=== PATIENT | male | born 1945 | race Caucasian/White ===

== ENCOUNTER → 2019-06-26 10:00 | Outpatient (CLI) | payer MEDICARE, SELFPAY ==
[2017-10-09 13:00] VITALS: BMI 22.7
--- NOTE | 2019-06-26 | DI.CT.S_ITS ---
PROCEDURE: CT LUMBAR SPINE WO CON INDICATIONS: Other spondylosis with radiculopathy TECHNIQUE: Noncontrast 3 mm thick sections acquired from the T12 level to the sacrum. Sagittal and coronal reformats were constructed. For radiation dose reduction, the following was used: automated exposure control. COMPARISON: None. FINDINGS: Image quality: Excellent. Bones: Postsurgical changes compatible L5-S1 TLIF. Orthopedic hardware is intact. No lucency is identified at the bone-hardware interface. There is trace L2-L3 at L3-L4 retrolisthesis. No acute vertebral body compression fractures. No suspicious lytic or blastic bony lesions. Central spinal caliber is of normal overall caliber. No pars defects. T12-L1: Disc height is normal. No central stenosis. No neural foraminal narrowing. No neural compression. L1-L2: Disc height is normal. Anterior endplate osteophytosis. Minimal, diffuse disc bulge. No central stenosis. No neural foraminal narrowing. No neural compression. L2-L3: Loss of disc height. Endplate osteophytosis. Endplate sclerosis and subchondral cyst formation. Mild, diffuse disc bulge and mild bilateral facet hypertrophy. Mild narrowing of the central canal. Mild bilateral neural foraminal narrowing. No neural compression. L3-L4: Loss of disc height. Endplate osteophytosis. Endplate sclerosis and subchondral cyst formation. Mild to moderate diffuse disc bulge. Mild bilateral facet hypertrophy. Mild to moderate narrowing of the central canal. Moderate right and mild left neural foraminal narrowing. No neural compression. L4-L5: Loss of disc height. Vacuum disc phenomenon. Endplate osteophytosis. Endplate sclerosis and subchondral cyst formation. Mild, diffuse disc bulge. Mild facet hypertrophy. Mild to moderate narrowing of the central canal. Moderate to severe bilateral neural foraminal narrowing. No neural compression. L5-S1: Status post fusion. Mild right facet hypertrophy. No central stenosis. Severe bilateral neural foraminal narrowing with slight compression of the exiting L5 nerve roots. Soft tissues: No retroperitoneal masses or hematomas. Visualized aorta is normal in caliber. IMPRESSION: 1. Status post L5-S1 TLIF. 2. Multilevel degenerative disc disease. 3. Multilevel facet arthropathy. 4. Mild to moderate L3-L4 and L4-L5 central canal narrowing. Mild L2-L3 central canal narrowing. 5. Severe bilateral L5-S1 neural foraminal narrowing. Moderate to severe bilateral L4-L5 neural foraminal narrowing. Moderate right and mild left L3-L4 neural foraminal narrowing. Mild bilateral L2-L3 neural foraminal narrowing. 6. Slight compression of the exiting bilateral L5 nerve roots secondary to neural foraminal narrowing. Dictated by: Lynn Arboleda MD, PhD on 06/26/2019 at 13:46 Approved by: Lynn Arboleda MD, PhD on 06/26/2019 at 13:54
== END ==
PROVIDERS: PCP Internal Medicine; Visit Provider Orthopaedic Surgery
DX: M47.26 Other spondylosis with radiculopathy, lumbar region (principal); M51.16 Intervertebral disc disorders with radiculopathy, lumbar region; M48.061 Spinal stenosis, lumbar region without neurogenic claudication; M48.07 Spinal stenosis, lumbosacral region; Z98.1 Arthrodesis status
CPT/HCPCS: 72131

== ENCOUNTER → 2019-08-08 13:55 | Outpatient (CLI) | payer MEDICARE, SELFPAY ==
[2017-10-09 13:00] VITALS: BMI 22.7
[2019-08-08 14:50] LABS: Alanine Aminotransferase 14 IU/L (<50); Albumin 4.2 g/dL (3.5-5.0); Albumin Globulin Ratio 1.7 (1.0-2.8); Alkaline Phosphatase 40 U/L (38-126); Aspartate Aminotransferase 24 IU/L (17-59); Bilirubin Total 0.4 mg/dL (0.2-1.3); Blood Urea Nitrogen 18 mg/dL (9-20); Calcium 9.5 mg/dL (8.4-10.2); Carbon Dioxide 27 mmol/L (22-32); Chloride 106 mmol/L (98-107); Cholesterol 187 mg/dL (140-199); Estimated Glomerular Filt Rate > 60.0 mL/min (>60); Globulin 2.5 g/dL (1.7-4.1); Glucose 95 mg/dL (80-110); HDL Cholesterol 50 mg/dL (40-60); HEMOLYSIS < 15 (0-50); LDL Cholesterol Calculated 119 mg/dL (<100); Potassium 4.3 mmol/L (3.4-5.1); Sodium 139 mmol/L (137-145); Total Protein 6.7 g/dL (6.3-8.2); Triglycerides 91 mg/dL (35-150)
== END ==
PROVIDERS: PCP Internal Medicine; Referring Provider Internal Medicine; Visit Provider Internal Medicine
DX: E78.5 Hyperlipidemia, unspecified (principal)
CPT/HCPCS: 36415; 80053; 80061

== ENCOUNTER → 2020-01-09 07:26 | Outpatient (CLI) | payer OTHER, SELFPAY ==
[2017-10-09 13:00] VITALS: BMI 22.7
[2020-01-09 08:47] LABS: Alanine Aminotransferase 12 IU/L (<50); Albumin 4.2 g/dL (3.5-5.0); Albumin Globulin Ratio 1.9 (1.0-2.8); Alkaline Phosphatase 43 U/L (38-126); Aspartate Aminotransferase 22 IU/L (17-59); BUN Creatinine Ratio 13.1 (6-22); Bilirubin Total 0.8 mg/dL (0.2-1.3); Blood Urea Nitrogen 13 mg/dL (9-20); Calcium 9.7 mg/dL (8.4-10.2); Carbon Dioxide 31 mmol/L (22-32); Chloride 104 mmol/L (98-107); Cholesterol 201 mg/dL (140-199); Estimated Glomerular Filt Rate > 60.0 mL/min (>60); Globulin 2.2 g/dL (1.7-4.1); Glucose 92 mg/dL (80-110); HDL Cholesterol 58 mg/dL (40-60); HEMOLYSIS < 15 (0-50); LDL Cholesterol Calculated 131 mg/dL (<100); Potassium 4.1 mmol/L (3.4-5.1); Sodium 139 mmol/L (137-145); Total Protein 6.4 g/dL (6.3-8.2); Triglycerides 58 mg/dL (35-150)
[2020-01-10 07:09] LABS: PSA, Total < 0.1 ng/mL (0.0-4.0)
== END ==
PROVIDERS: PCP Internal Medicine; Referring Provider Internal Medicine; Visit Provider Internal Medicine
DX: R03.0 Elevated blood-pressure reading, without diagnosis of hypertension (principal); Z85.46 Personal history of malignant neoplasm of prostate; E78.5 Hyperlipidemia, unspecified
CPT/HCPCS: 36415; 80053; 80061; 84153; 84154

== ENCOUNTER → 2020-02-18 10:45 | Outpatient (CLI) | payer MEDICARE, SELFPAY ==
[2017-10-09 13:00] VITALS: BMI 22.7
[2020-02-20 12:08] LABS: Fecal Immunochemical Test Negative (Negative)
== END ==
PROVIDERS: PCP Family Medicine; Referring Provider Family Medicine; Visit Provider Family Medicine
DX: Z12.11 Encounter for screening for malignant neoplasm of colon (principal)
CPT/HCPCS: 82274

== ENCOUNTER → 2020-08-25 07:19 | Outpatient (CLI) | payer MEDICARE, SELFPAY ==
[2017-10-09 13:00] VITALS: BMI 22.7
[2020-08-25 08:40] LABS: Cholesterol 173 mg/dL (140-199); Triglycerides 55 mg/dL (35-150)
[2020-08-25 08:55] LABS: HDL Cholesterol 50 mg/dL (40-60); LDL Cholesterol Calculated 112 mg/dL (<100)
== END ==
PROVIDERS: PCP Family Medicine; Referring Provider Family Medicine; Visit Provider Family Medicine
DX: E78.5 Hyperlipidemia, unspecified (principal)
CPT/HCPCS: 36415; 80061

== ENCOUNTER → 2020-09-28 13:41 | Outpatient (CLI) | payer MEDICARE, SELFPAY ==
[2017-10-09 13:00] VITALS: BMI 22.7
[2020-09-28 14:27] LABS: Hemoglobin A1C% w Est Avg Glu 4.6 % (4.0-6.0)
[2020-09-28 17:45] LABS: TSH w/ Reflex to FT4 3.58 uIU/mL (0.47-4.68)
== END ==
PROVIDERS: PCP Family Medicine; Referring Provider Family Medicine; Visit Provider Family Medicine
DX: R20.9 Unspecified disturbances of skin sensation
CPT/HCPCS: 36415; 80061; 83036; 84443

== ENCOUNTER → 2020-12-08 07:02 | Outpatient (CLI) | payer MEDICARE, SELFPAY ==
[2017-10-09 13:00] VITALS: BMI 22.7
[2020-12-08 08:49] LABS: Cholesterol 182 mg/dL (140-199); HDL Cholesterol 51 mg/dL (40-60); LDL Cholesterol Calculated 121 mg/dL (<100); Triglycerides 52 mg/dL (35-150)
== END ==
PROVIDERS: PCP Family Medicine; Referring Provider Family Medicine; Visit Provider Family Medicine
DX: E78.5 Hyperlipidemia, unspecified (principal)
CPT/HCPCS: 36415; 80061

== ENCOUNTER → 2021-12-14 07:08 | Outpatient (CLI) | payer MEDICARE, SELFPAY ==
[2017-10-09 13:00] VITALS: BMI 22.7
[2021-12-14 08:06] LABS: Alanine Aminotransferase 16 IU/L (<50); Albumin 3.9 g/dL (3.5-5.0); Albumin Globulin Ratio 1.7 (1.0-2.8); Alkaline Phosphatase 46 U/L (38-126); Aspartate Aminotransferase 22 IU/L (17-59); BUN Creatinine Ratio 13.5 (6-22); Bilirubin Total 0.5 mg/dL (0.2-1.3); Blood Urea Nitrogen 14 mg/dL (9-20); Calcium 8.9 mg/dL (8.4-10.2); Carbon Dioxide 31 mmol/L (22-32); Chloride 102 mmol/L (98-107); Cholesterol 163 mg/dL (140-199); Estimated Glomerular Filt Rate > 60 mL/min (>60); Globulin 2.3 g/dL (1.7-4.1); Glucose 105 mg/dL (80-110); HDL Cholesterol 45 mg/dL (40-60); HEMOLYSIS < 15 (0-50); LDL Cholesterol Calculated 107 mg/dL (<100); Potassium 4.2 mmol/L (3.4-5.1); Sodium 138 mmol/L (137-145); Total Protein 6.2 g/dL (6.3-8.2); Triglycerides 53 mg/dL (35-150)
[2021-12-14 08:35] LABS: Thyroid Stimulating Hormone 4.18 uIU/mL (0.47-4.68)
== END ==
PROVIDERS: PCP Family Medicine; Referring Provider Family Medicine; Visit Provider Family Medicine
DX: E78.5 Hyperlipidemia, unspecified (principal); R03.0 Elevated blood-pressure reading, without diagnosis of hypertension
CPT/HCPCS: 36415; 80053; 80061; 84443

== ENCOUNTER → 2021-12-20 10:31 | Outpatient (CLI) | payer MEDICARE, SELFPAY ==
[2017-10-09 13:00] VITALS: BMI 22.7
[2021-12-20 12:07] LABS: Add Manual Diff / Slide Review NO; Basophils Absolute Auto 0 /uL (0-100); Basophils Percent Auto 0.6 % (0-2); Eosinophils Absolute Auto 0 /uL (0-450); Eosinophils Percent Auto 0.9 % (2-4); Hematocrit 41.9 % (41-53); Hemoglobin 14.8 g/dL (13.5-17.5); Lymphocytes Absolute Auto 800 /uL (1100-4500); Lymphocytes Percent Auto 15.9 % (25-40); Mean Corpuscular HGB Conc 35.2 % (30-36); Mean Corpuscular Hemoglobin 29.1 PG (26-34); Mean Corpuscular Volume 82.6 fL (80-100); Monocytes Absolute Auto 400 /uL (0-900); Monocytes Percent Auto 7.2 % (3-14); Neutrophils Absolute Auto 4000 /uL (1500-7000); Neutrophils Percent Auto 75.4 % (50-75); Platelet Count 178 X10^3/uL (150-400); Red Blood Cell Count 5.07 X10^6/uL (4.5-5.9); Red Cell Distribution Width 13.6 % (11.6-14.8); White Blood Cell Count 5.3 X10^3/uL (4.5-11.0)
[2021-12-20 12:54] LABS: HEMOLYSIS < 15 (0-50); Iron 82 ug/dL (49-181)
[2021-12-20 13:08] LABS: Percent Iron Saturation 30 % (20-50); Total Iron Binding Capacity 274 ug/dL (261-462); Transferrin 212 mg/dL (206-381)
[2021-12-20 13:21] LABS: Prostate Specific Antigen < 0.064 ng/mL (0.10-4.00)
== END ==
PROVIDERS: PCP Family Medicine; Referring Provider Physician Assistant; Visit Provider Physician Assistant
DX: D64.9 Anemia, unspecified (principal); Z85.46 Personal history of malignant neoplasm of prostate
CPT/HCPCS: 36415; 83540; 83550; 84153; 85025

== ENCOUNTER 2022-07-27 13:22 | Inpatient (IN) | payer MEDICARE, SELFPAY ==
[2017-10-09 13:00] VITALS: BMI 22.7
[2022-07-27] VITALS (44 sets, daily range): BP systolic 119–177; BP diastolic 72–128; PULSE 139–146; RESP 11–24; TEMP 36.2–37.3; O2SAT 95–99; BMI 25.7; BMI 26.2
--- NOTE | 2022-07-27 13:48 | DI.RAD.S_ITS ---
PROCEDURE: XR CHEST 1V INDICATIONS: chest pain TECHNIQUE: One view of the chest was acquired. COMPARISON: None. FINDINGS: Surgical changes and devices: None. Lungs and pleura: Lungs are clear. No pleural effusions or pneumothorax. Mediastinum: Mediastinal contours appear normal. Heart size is normal. Bones and chest wall: No suspicious bony lesions. Overlying soft tissues appear unremarkable. IMPRESSION: No acute cardiopulmonary disease. Dictated by: Kimani Rivas M.D. on 07/27/2022 at 15:02 Approved by: Kimani Rivas M.D. on 07/27/2022 at 15:02
[2022-07-27 14:02] LABS: Add Manual Diff / Slide Review NO; Basophils Absolute Auto 100 /uL (0-100); Basophils Percent Auto 0.8 % (0-2); Eosinophils Absolute Auto 100 /uL (0-450); Eosinophils Percent Auto 1.2 % (2-4); Hematocrit 47.3 % (41-53); Hemoglobin 15.4 g/dL (13.5-17.5); Lymphocytes Absolute Auto 900 /uL (1100-4500); Lymphocytes Percent Auto 14.1 % (25-40); Mean Corpuscular HGB Conc 32.6 % (30-36); Mean Corpuscular Hemoglobin 27.2 PG (26-34); Mean Corpuscular Volume 83.3 fL (80-100); Monocytes Absolute Auto 400 /uL (0-900); Monocytes Percent Auto 6.4 % (3-14); Neutrophils Absolute Auto 5100 /uL (1500-7000); Neutrophils Percent Auto 77.5 % (50-75); Platelet Count 164 X10^3/uL (150-400); Red Blood Cell Count 5.68 X10^6/uL (4.5-5.9); Red Cell Distribution Width 14.4 % (11.6-14.8); White Blood Cell Count 6.5 X10^3/uL (4.5-11.0)
[2022-07-27 14:09] LABS: INR 1.3 (0.9-1.3); Prothrombin Time 14.8 SECONDS (10.1-12.7)
[2022-07-27 14:10] LABS: D Dimer 342 ng/ml (<500)
[2022-07-27 14:13] LABS: Alanine Aminotransferase 34 IU/L (<50); Albumin 4.2 g/dL (3.5-5.0); Albumin Globulin Ratio 1.7 (1.0-2.8); Alkaline Phosphatase 53 U/L (38-126); Aspartate Aminotransferase 29 IU/L (17-59); BUN Creatinine Ratio 16.3 (6-22); Bilirubin Total 0.7 mg/dL (0.2-1.3); Blood Urea Nitrogen 16 mg/dL (9-20); Carbon Dioxide 27 mmol/L (22-32); Chloride 103 mmol/L (98-107); Creatine Kinase 66 U/L (55-170); Estimated Glomerular Filt Rate > 60 mL/min (>60); Globulin 2.5 g/dL (1.7-4.1); Glucose 108 mg/dL (80-110); HEMOLYSIS < 15 (0-50); Lipase 143 U/L (23-300); Potassium 3.9 mmol/L (3.4-5.1); Sodium 137 mmol/L (137-145); Total Protein 6.7 g/dL (6.3-8.2)
[2022-07-27] MEDS: DILTIAZEM 125 MG/125 ML PIGGYBACK IV (14:23)
[2022-07-27] MEDS: dilTIAZem 5 MG/ML SDV 10 MG IV (14:23)
[2022-07-27 14:24] LABS: NT-proBNP (BNP-Adult 18+) 448 pg/mL (<450); Troponin I < 0.012 ng/mL (0.01-0.034)
[2022-07-27] MEDS: SODIUM CHLORIDE 0.9% 1,000 ML 150 ML IV (14:24)
--- NOTE | 2022-07-27 15:26 | ED_ITS ---
HPI - Arrhythmia/Palpitations General Chief Complaint: Arrhythmia/Palpitations Stated Complaint: sent by DR payne heart rate & BP Time Seen by Provider: 07/27/22 13:48 Source: patient Mode of arrival: Ambulatory History of Present Illness HPI narrative: 77-year-old male former smoker with history of hyperlipidemia presents with a chief complaint of shortness of breath and fatigue and a rapid heart rate, likely for the past few days but it certainly intensified last night. He gets significantly short of breath with exertion and feels dizzy and lightheaded. He denies any history of AFib or a flutter. Patient denies any change in med ications or diet. He denies any fever or chills. He denies nausea, vomiting or diarrhea Related Data Home Medications Medication Instructions Recorded Confirmed multivitamin 1 tab PO DAILY 09/18/17 07/27/22 celecoxib 100 mg capsule 100 mg PO BID 07/27/22 07/27/22 Previous Rx's Medication Instructions Recorded pravastatin 10 mg tablet 10 mg PO BEDTIME #90 tabs 12/20/21 Allergies Allergy/AdvReac Type Severity Reaction Status Date / Time No Known Allergies Allergy Unknown Verified 07/27/22 16:20 Review of Systems Review of Systems Narrative: GENERAL: Denies chills, fatigue, malaise, fever, sweats. HEENT: Denies sinus pain, ear pain, sore throat, difficulty swallowing, dizziness. RESPIRATORY: See HPI CARDIOVASCULAR: See HPI GASTROINTESTINAL: Denies nausea, vomiting, abdominal pain, diarrhea, constipation, melena. : Denies dysuria, frequency, incontinence, hematuria, urinary retention. MUSCULOSKELETAL: denies weakness, joint pain, or bony pain SKIN: Denies rash, skin lesions, or other NEUROLOGIC: Denies weakness, headache, numbness, change in speech, confusion, seizures, incoordination. PSYCHIATRIC: No concerning psychosocial issues. 12 point review of systems is negative except for those stated above Patient History Medical History Arthritis Back pain (~2016) Chicken pox COVID-19 DDD (degenerative disc disease) DJD (degenerative joint disease) Elevated LDL cholesterol level Hearing loss History of COVID-19 History of malignant neoplasm of prostate History of prostate cancer Jaw fracture Malignant neoplasm of prostate (12/07/16) Measles Mumps Nocturia Ocular migraine Right knee pain (12/19/16) Weight loss, intentional Surgical History Anesthesia History of prostatectomy (~1995) History of spinal fusion (~2017) History of tonsillectomy Mandibular fracture (~1967) S/P left knee arthroscopy Family History Father History of heart disease Mother No problems noted. Social History household members: spouse Smoking Status: Former smoker second hand exposure: No alcohol intake: current substance use type: does not use Smoking Status: Former smoker alcohol intake frequency: 0-2 drinks per day Substance Use Type: does not use Exam Narrative Exam Narrative: GENERAL: [77] year old patient appears stated age. Well-developed patient, in mild distress. HEAD: Atraumatic. Normocephalic. EYES: Pupils equal round and reactive. Extraocular motions intact. No scleral icterus. No injection or drainage. ENT: Nose without bleeding, purulent drainage. Throat without erythema, tonsillar hypertrophy or exudate. Airway patent. NECK: Trachea midline. Non tender CARDIOVASCULAR: Tachycardic and regular rhythm without murmurs, gallops, or rubs. RESPIRATORY: Clear to auscultation. Breath sounds equal bilaterally. No wheezes, rales, or rhonchi. GASTROINTESTINAL: Abdomen soft, non-tender, nondistended. EXTREMITIES: No edema or joint tenderness. BACK: Nontender without deformity or crepitance. No flank tenderness. NEURO: AOx3. SKIN: No rash or erythema of visible areas Initial Vital Signs Initial Vital Signs: Vital Signs Temperature 97.9 F 07/27/22 13:30 Pulse Rate 144 H 07/27/22 13:30 Respiratory Rate 20 07/27/22 13:30 Blood Pressure 174/118 H 07/27/22 13:30 Pulse Oximetry 99 07/27/22 13:30 Oxygen Delivery Method 07/27/22 13:30 Course Orders Ordered: ED Orders 07/27/22 13:39 EKG-12 Lead Stat 07/27/22 13:48 XR chest 1V Stat 07/27/22 13:49 Complete Blood Count AUTO DIFF Stat Comprehensive Metabolic Panel Stat D Dimer Stat Lipase Stat NT-proBNP (BNP-Adult 18+) Stat Prothrombin Time INR Stat Troponin & CK Cardiac Panel Stat 07/27/22 16:23 COVID19 -Nasal RAPID/Pre-Proc Stat 07/27/22 18:03 Education, smoking cessation ONGOING 07/28/22 07:00 EC echo doppler complete Urgent Acetaminophen (Acetaminophen 325 Mg Tablet) 650 mg PO Q6H PRN PRN Reason: Fever/Mild Pain (1-3) Apixaban (Apixaban 5 Mg Tablet) 5 mg PO BID [facility] Metoprolol Tartrate (Metoprolol Tartrate 5 Mg/5 Ml Inj) 5 mg IV Q2HR PRN PRN Reason: Heart Rate- High (>160) Metoprolol Tartrate (Metoprolol Ir 25 Mg Tablet) 25 mg PO Q6H RAINA Last Admin: 07/27/22 18:34 Dose: 25 mg Documented By: DYAN Naloxone HCl (Naloxone 0.4 Mg/Ml Vial) 0.2 mg IV Q2MIN PRN PRN Reason: Opiate Reversal Pravastatin Sodium (Pravastatin 20 Mg Tablet) 10 mg PO BEDTIME RAINA Discontinued Medications Diltiazem HCl (Diltiazem 5 Mg/Ml Sdv) 10 mg IV NOW ONE Stop: 07/27/22 13:49 Last Admin: 07/27/22 14:23 Dose: 10 mg Documented By: RB DILTIAZEM (Diltiazem 125 Mg/125 Ml-D5w) 125 mg in 125 mls @ 5 mls/hr IV TITRATE RAINA; Protocol Last Titration: 07/27/22 16:09 Dose: 0 mg/hr, 0 mls/hr Documented By: Titration: 07/27/22 15:32 Dose: 15 mg/hr, 15 mls/hr Documented By: Titration: 07/27/22 14:55 Dose: 10 mg/hr, 10 mls/hr Documented By: Admin: 07/27/22 14:23 Dose: 5 mg/hr, 5 mls/hr Documented By: RB Sodium Chloride (Normal Saline 0.9%) 1,000 mls @ 150 mls/hr IV CONT RAINA Last Infusion: 07/27/22 17:40 Dose: 0 mls/hr Documented By: Admin: 07/27/22 14:24 Dose: 150 mls/hr Documented By: RB Metoprolol Tartrate (Metoprolol Ir 25 Mg Tablet) 25 mg PO NOW ONE Stop: 07/27/22 15:53 Last Admin: 07/27/22 16:12 Dose: 25 mg Documented By: KAILA Metoprolol Tartrate (Metoprolol Ir 50 Mg Tablet) 25 mg PO Q6HR RAINA Last Admin: 07/27/22 18:31 Dose: Not Given Documented By: DYAN Reevaluation(s) Reevaluation #1: essentially no change in rate with diltiazem Consultations Consultation #1: call to cardiology, Dr. Garcias, recommends anticoagulation, stopping diltiazem as it is done little to rate control and switching to metoprolol 25 mg p.o. q.6 hours increasing by 25 mg every 12 hours until heart rate below 100. Will need referral to see Dr. Gomez as an outpatient Vital Signs Vital signs: Vital Signs - 8 hr 07/27/22 13:30 07/27/22 14:23 07/27/22 14:18 Temperature 97.9 F Pulse Rate 144 H 145 H 145 H Respiratory Rate 20 Blood Pressure 174/118 H 177/128 H Pulse Oximetry 99 Oxygen Delivery Method Room Air 07/27/22 14:20 07/27/22 14:20 07/27/22 14:24 Temperature Pulse Rate 145 H 145 H Respiratory Rate Blood Pressure 177/128 H Pulse Oximetry 97 97 Oxygen Delivery Method 07/27/22 14:24 07/27/22 14:30 07/27/22 14:30 Temperature Pulse Rate 145 H Respiratory Rate Blood Pressure 167/125 H 156/114 H Pulse Oximetry 96 Oxygen Delivery Method 07/27/22 14:40 07/27/22 14:40 07/27/22 14:50 Temperature Pulse Rate 144 H Respiratory Rate Blood Pressure 154/106 H 145/101 H Pulse Oximetry 96 Oxygen Delivery Method 07/27/22 14:50 07/27/22 15:00 07/27/22 15:00 Temperature Pulse Rate 144 H 144 H Respiratory Rate 22 Blood Pressure 153/108 H Pulse Oximetry 96 97 Oxygen Delivery Method 07/27/22 15:10 07/27/22 15:10 07/27/22 15:20 Temperature Pulse Rate 144 H Respiratory Rate 15 Blood Pressure 152/111 H 152/113 H Pulse Oximetry 95 Oxygen Delivery Method 07/27/22 15:20 07/27/22 15:31 07/27/22 15:33 Temperature Pulse Rate 144 H 142 H 143 H Respiratory Rate 11 L 17 Blood Pressure Pulse Oximetry 96 98 Oxygen Delivery Method 07/27/22 15:33 07/27/22 15:40 07/27/22 15:40 Temperature Pulse Rate 144 H Respiratory Rate Blood Pressure 148/110 H 145/107 H Pulse Oximetry 98 Oxygen Delivery Method 07/27/22 15:45 07/27/22 15:50 07/27/22 15:50 Temperature Pulse Rate 144 H 144 H Respiratory Rate Blood Pressure 140/102 H Pulse Oximetry 97 96 Oxygen Delivery Method 07/27/22 15:55 07/27/22 16:00 07/27/22 16:00 Temperature Pulse Rate 144 H 144 H Respiratory Rate 13 Blood Pressure 143/104 H Pulse Oximetry 97 96 Oxygen Delivery Method 07/27/22 16:05 07/27/22 16:10 07/27/22 16:10 Temperature Pulse Rate 144 H 144 H Respiratory Rate 14 20 Blood Pressure 142/102 H Pulse Oximetry 95 96 Oxygen Delivery Method 07/27/22 16:15 Temperature Pulse Rate 143 H Respiratory Rate 24 Blood Pressure Pulse Oximetry 97 Oxygen Delivery Method MDM - Arrhythmia/Palpitations Lab Data 07/27/22 13:49 07/27/22 13:49 Labs: Lab Results 07/27/22 07/27/22 07/27/22 Range/Units 13:49 13:49 13:49 WBC 6.5 (4.5-11.0) X10^3/uL RBC 5.68 (4.5-5.9) X10^6/uL Hgb 15.4 (13.5-17.5) g/dL Hct 47.3 (41-53) % MCV 83.3 (80-100) fL MCH 27.2 (26-34) PG MCHC 32.6 (30-36) % RDW 14.4 (11.6-14.8) % Plt Count 164 (150-400) X10^3/uL Neut % (Auto) 77.5 H (50-75) % Lymph % (Auto) 14.1 L (25-40) % [place] % (Auto) 6.4 (3-14) % Eos % (Auto) 1.2 L (2-4) % Baso % (Auto) 0.8 (0-2) % Neut # (Auto) 5100 (2559-2259) /uL Lymph # (Auto) 900 L (1730-3663) /uL [place] # (Auto) 400 (0-900) /uL Eos # (Auto) 100 (0-450) /uL Baso # (Auto) 100 (0-100) /uL PT 14.8 H (10.1-12.7) SECONDS INR 1.3 (0.9-1.3) D-Dimer 342 (<500) ng/ml Sodium 137 (137-145) mmol/L Potassium 3.9 (3.4-5.1) mmol/L Chloride 103 (98-107) mmol/L Carbon Dioxide 27 (22-32) mmol/L BUN 16 (9-20) mg/dL Creatinine 0.98 (0.66-1.25) mg/dL Estimated GFR > 60 (>60) mL/min BUN/Creatinine Ratio 16.3 (6-22) Glucose 108 (80-110) mg/dL Calcium 9.0 (8.4-10.2) mg/dL Total Bilirubin 0.7 (0.2-1.3) mg/dL AST 29 (17-59) IU/L ALT 34 (<50) IU/L Alkaline Phosphatase 53 (38-126) U/L Total Creatine Kinase 66 (55-170) U/L CK-MB (CK-2) TNP CK-MB (CK-2) Rel Index TNP Troponin I < 0.012 (0.01-0.034) ng/mL NT-Pro-B Natriuret Pep 448 (<450) pg/mL Total Protein 6.7 (6.3-8.2) g/dL Albumin 4.2 (3.5-5.0) g/dL Globulin 2.5 (1.7-4.1) g/dL Albumin/Globulin Ratio 1.7 (1.0-2.8) Lipase 143 (23-300) U/L Imaging Data Chest x-ray: Radiologist's Impresson: [address] [address] XRay Report Signed Patient: Humberto Pa MR#: [id number] : 1945 Acct:[id number] Age/Sex: 77 / M Date of Service: 07/27/22 Loc: ED Accession Number: [id number] ?? Procedure: XR chest 1V Ordering Provider: Rodríguez Taylor D.O. PROCEDURE:? XR CHEST 1V ? INDICATIONS:? chest pain ? TECHNIQUE:? One view of the chest was acquired.? ? COMPARISON:? None. ? FINDINGS:? ? Surgical changes and devices:? None.? ? Lungs and pleura:? Lungs are clear.? No pleural effusions or pneumothorax.? ? Mediastinum:? Mediastinal contours appear normal.? Heart size is normal.? ? Bones and chest wall:? No suspicious bony lesions.? Overlying soft tissues appear unremarkable.? ? IMPRESSION:? No acute cardiopulmonary disease. ? ? ? Dictated by: Kimani Rivas M.D. on 07/27/2022 at 15:02 ? ? Approved by: Kimani Rivas M.D. on 07/27/2022 at 15:02 ? MDM Narrative Medical decision making narrative: [77-year-old male with history of hyperlipidemia presents with rapid heart rate for the past few days] Multiple etiologies for patient's symptoms considered including, but not limited to: [AFib, atrial flutter versus other] Prior Charts reviewed: Multiple prior notes reviewed Labs reviewed and interpreted by myself: No specific abnormality that would require any intervention Imaging reviewed: Chest x-ray clear Patient with newly discovered atrial flutter, likely present for least the past few days, he is symptomatic but not in significant distress and is not a candidate for cardioversion. Patient is anticoagulated and attempts initially at rate control with diltiazem and then convert to metoprolol. Conversation with Cardiology recommends hospitalization, stabilization with rate control and anticoagulation Discharge Plan Departure Patient Disposition: Admitted as Observation Clinical Impression: Atrial flutter Admit Date/Time: 07/27/22 16:19 Admit Provider: Damian Brennan
[2022-07-27] MEDS: METOPROLOL IR 25 MG TABLET PO ×3 (16:12→21:02)
--- NOTE | 2022-07-27 16:12 | PC.NURSE ---
Dr. Taylor gave this RN a verbal order to stop the diltiazem infusion.
--- NOTE | 2022-07-27 16:21 | P.HP_ITS ---
History of Present Illness History of Present Illness Date Patient Seen: 07/27/22 Time Patient Seen: 16:22 Chief complaint: sent by DR payne heart rate & BP Narrative: 77-year-old male admitted via emergency department because of persistent atrial flutter. Patient had a sense of palpitations difficulty sleeping overnight. Began sometime yesterday he thinks probably. No other associated symptoms including no real shortness of breath maybe a generalized sense of fatigue no chest pain no syncope near-syncope Had an episode about 3 weeks ago when he was sort of rushing to catch a bus in [facility] and he got lightheaded dizzy felt the same sort of palpitations. It passed on its own after 5 or 10 minutes and has not recurred since that time ER evaluation was pretty unremarkable except for the atrial flutter with heart rate about 150 with 2-1 conduction on ECG. No response to IV diltiazem continuously infused. Cardiology suggested oral metoprolol with escalating doses until heart rate is controlled. Cardiology also suggested initiation of anticoagulation with direct oral anticoagulant and outpatient follow-up with Cardiology Patient History Medical History Arthritis Back pain (~2015) Chicken pox COVID-19 DDD (degenerative disc disease) DJD (degenerative joint disease) Elevated LDL cholesterol level Hearing loss History of COVID-19 History of malignant neoplasm of prostate History of prostate cancer Jaw fracture Malignant neoplasm of prostate (12/07/16) Measles Mumps Nocturia Ocular migraine Right knee pain (12/19/16) Weight loss, intentional Surgical History Anesthesia History of prostatectomy (~1995) History of spinal fusion (~2017) History of tonsillectomy Mandibular fracture (~1967) S/P left knee arthroscopy Family & Social History Family History Father History of heart disease Mother No problems noted. Social History: household members spouse Safety & Behavioral: Feels Safe in Current Yes Environment Been Physically Hurt or No Threatened By a Person Tobacco & Substance use: Smoking Status Former smoker alcohol intake current alcohol intake frequency 0-2 drinks per day Substance Use Type does not use Meds Home Medications and Allergies Home Medications Medication Instructions Recorded Confirmed Type multivitamin 1 tab PO DAILY 09/18/17 07/27/22 History pravastatin 10 mg tablet 10 mg PO BEDTIME #90 tabs 12/20/21 07/27/22 Rx celecoxib 100 mg capsule 100 mg PO BID 07/27/22 07/27/22 History Allergies Allergy/AdvReac Type Severity Reaction Status Date / Time No Known Allergies Allergy Unknown Verified 07/27/22 16:20 Review of Systems Review of Systems ROS: Yes All systems reviewed with the patient and are negative except as otherwise documented Exam Vital Signs (past 8 hours): - 07/27/22 13:30 07/27/22 14:23 07/27/22 14:18 Temperature 97.9 F Pulse Rate 144 H 145 H 145 H Respiratory Rate 20 Blood Pressure 174/118 H 177/128 H Pulse Oximetry 99 Oxygen Delivery Method Room Air 07/27/22 14:20 07/27/22 14:20 07/27/22 14:24 Temperature Pulse Rate 145 H 145 H Respiratory Rate Blood Pressure 177/128 H Pulse Oximetry 97 97 Oxygen Delivery Method 07/27/22 14:24 07/27/22 14:30 07/27/22 14:30 Temperature Pulse Rate 145 H Respiratory Rate Blood Pressure 167/125 H 156/114 H Pulse Oximetry 96 Oxygen Delivery Method 07/27/22 14:40 07/27/22 14:40 07/27/22 14:50 Temperature Pulse Rate 144 H Respiratory Rate Blood Pressure 154/106 H 145/101 H Pulse Oximetry 96 Oxygen Delivery Method 07/27/22 14:50 07/27/22 15:00 07/27/22 15:00 Temperature Pulse Rate 144 H 144 H Respiratory Rate 22 Blood Pressure 153/108 H Pulse Oximetry 96 97 Oxygen Delivery Method 07/27/22 15:10 07/27/22 15:10 07/27/22 15:20 Temperature Pulse Rate 144 H Respiratory Rate 15 Blood Pressure 152/111 H 152/113 H Pulse Oximetry 95 Oxygen Delivery Method 07/27/22 15:20 07/27/22 15:31 07/27/22 15:33 Temperature Pulse Rate 144 H 142 H 143 H Respiratory Rate 11 L 17 Blood Pressure Pulse Oximetry 96 98 Oxygen Delivery Method 07/27/22 15:33 07/27/22 15:40 07/27/22 15:40 Temperature Pulse Rate 144 H Respiratory Rate Blood Pressure 148/110 H 145/107 H Pulse Oximetry 98 Oxygen Delivery Method 07/27/22 15:45 07/27/22 15:50 07/27/22 15:50 Temperature Pulse Rate 144 H 144 H Respiratory Rate Blood Pressure 140/102 H Pulse Oximetry 97 96 Oxygen Delivery Method Oxygen Delivery Method Room Air Narrative Exam Narrative: Elderly male in no obvious distress lying on a [facility] HEENT unremarkable Lungs-clear with good breath sounds Heart-tachycardic but regular, no murmur Abdomen-benign Extremities-no cyanosis clubbing or edema Neuro-alert orient x3 moves all 4 extremities no focal findings gait not tested Objective ECG Impression: Atrial flutter with 2-1 conduction and right bundle branch block. No prior ECG for comparison Labs 07/27/22 13:49 07/27/22 13:49 Labs: Laboratory Results - last 24 hr 07/27/22 07/27/22 07/27/22 13:49 13:49 13:49 WBC 6.5 RBC 5.68 Hgb 15.4 Hct 47.3 MCV 83.3 MCH 27.2 MCHC 32.6 RDW 14.4 Plt Count 164 Neut % (Auto) 77.5 H Lymph % (Auto) 14.1 L [place] % (Auto) 6.4 Eos % (Auto) 1.2 L Baso % (Auto) 0.8 Neut # (Auto) 5100 Lymph # (Auto) 900 L [place] # (Auto) 400 Eos # (Auto) 100 Baso # (Auto) 100 PT 14.8 H INR 1.3 D-Dimer 342 Sodium 137 Potassium 3.9 Chloride 103 Carbon Dioxide 27 BUN 16 Creatinine 0.98 Estimated GFR > 60 BUN/Creatinine Ratio 16.3 Glucose 108 Calcium 9.0 Total Bilirubin 0.7 AST 29 ALT 34 Alkaline Phosphatase 53 Total Creatine Kinase 66 CK-MB (CK-2) TNP CK-MB (CK-2) Rel Index TNP Troponin I < 0.012 NT-Pro-B Natriuret Pep 448 Total Protein 6.7 Albumin 4.2 Globulin 2.5 Albumin/Globulin Ratio 1.7 Lipase 143 Assessment & Plan Assessment & Plan narrative: 1. Atrial flutter with rapid ventricular response-will try and control with beta-conner therapy as per Cardiology. Since this is new onset I recommend obtaining echocardiography at some point he will likely need cardiac stress testing but that would best be performed when heart rate is either well controlled or he is back in sinus rhythm. Not felt by Cardiology be a candidate for cardioversion does not appear to have urgent need for cardioversion at this point based on cardiovascular collapse etcetera Cardiology also recommended anticoagulation with a direct oral anticoagulant which makes sense we will initiate that as well. I would start with metoprolol tartrate 25 mg q.6 hours as recommended by Cardiology advanced that as necessary every 12-24 hours. Will also keep metoprolol IV as a backup for severely elevated heart rates and or additional symptoms 2. Hyperlipidemia-continue patient's long-term statin therapy 3. VTE prophylaxis-patient is going to be anticoagulated with Eliquis so no additional anticoagulation or prophylaxis necessary 4. Code status-patient appropriate for, and requests full code in the event of a sudden cardiac or respiratory arrest which not at this point anticipated COVID-19 COVID-19 status: Negative Result date/Date tested (Pos, Neg/Pending): 07/27/22
[2022-07-27 17:00] LABS: COVID19 -Nasal RAPID Negative (Negative)
[2022-07-27] MEDS: PRAVASTATIN 20 MG TABLET 10 MG PO (20:43)
[2022-07-27] MEDS: APIXABAN 5 MG TABLET PO (20:44)
[2022-07-27] MEDS: METOPROLOL TARTRATE 5 MG/5 ML INJ IV (20:56)
--- NOTE | 2022-07-27 21:18 | PC.NURSE ---
Addendum entered by Lakesha Flores R.N. 07/28/22 05:42: [employer] Pt notified RN that he felt a very brief moment of nausea for approximately 2 seconds, then felt like he was short of breath for 5-10 seconds. Pt is on room air and continues SPO2% monitoring stating in the high 90's (96-99), lungs are clear bi-laterally throughout. Pt heart rate has been sustaining in the mid 130's. Manual Blood pressure taken 138/82 (left arm) 124/84 (right arm). Pt denies any chest pain. raised Pt's head of bed to 40*. Pt call light placed within reach (on lap) and instructed to notify RN if any symptoms are felt. SOB,Nausea,Vomit,Lightheadedness or any sensation of anxiety. Pt verbalized understanding. Addendum entered by Lakesha Flores R.N. 07/27/22 22:59: Manual BP 126/72 (left arm) HR 140. Pt denies any chest pain,SOB,Nausea or vomiting. Addendum entered by Lakesha Flores R.N. 07/27/22 22:24: NightShift Dr Jose. called RN for update on Pt, Pt currently sleeping with a heart rate sustained in 140's. Dr Brennan gave new verbal orders of Digoxin 250 mcg give now One time. Order repeated and acknowledged. Original Note: [employer] Pt has had a sustained heart rate above 140's and increased to 170/180's when Pt gets up to use restroom, Pt manual B/P 158/108 (left arm) 142/98 (right arm). Pt denies any SOB, Nausea/Vomit or chest pain. Dr Jose contacted and informed, orders given to give Metoprolol IV 5mg now as per
[2022-07-27] MEDS: DIGOXIN 500 MCG/2 ML AMPUL 250 MCG IV (22:13)
[2022-07-27] MEDS: METOPROLOL IR 25 MG TABLET 50 MG PO (23:48)
[2022-07-28] VITALS (37 sets, daily range): BP systolic 105–153; BP diastolic 68–102; PULSE 70–141; RESP 17–41; TEMP 35.9–37.7; O2SAT 90–141
[2022-07-28] MEDS: METOPROLOL IR 25 MG TABLET 50 MG PO (05:25)
--- NOTE | 2022-07-28 07:00 | DI.ECHO.S_ITS ---
[facility]---------+ [facility] +---------+ : : [address] : [address] : : : : [id number] : : : : Phone: [phone]+ Echocardiogram Report + + :Name: JONNY SNIDER Study Date: 07/28/2022 Height: 72 in : :[facility] ReadingLocation: Weight: 270 lb : : Gender: Male BSA: 2.4 m2 : :: 08/05/1977 Age: 44 yrs BP: 138/85 mmHg: :Reason For Study: Atrial Fibrillation : :Ordering Physician: Bao : :Adilia Day Performed By: Ivette Gan : :Referring: Bao Day : + + Interpretation Summary Left ventricular ejection fraction is estimated to be 35 +/- 5%. There is mild to moderate global hypokinesis of the left ventricle. There is anterior wall severe hypokinesis. There is inferior wall hypokinesis. The right ventricle is mildly dilated. Left ventricular function has mildly worsened compared to the previous exam. There is no significant valvular heart disease. Procedure: A two-dimensional transthoracic echocardiogram with color flow and Doppler was performed. The study quality was technically adequate. The patient was in atrial fibrillation with heart rates between 94-117 bpm during the exam. Left Ventricle: The left ventricle is normal in size and wall thickness. There has been no significant change since the previous study. Left ventricular ejection fraction is estimated to be 35 +/- 5%. Left ventricular function has mildly worsened compared to the previous exam. There is mild to moderate global hypokinesis of the left ventricle. There is anterior wall severe hypokinesis. There is inferior wall hypokinesis. Diastolic function could not be accurately assessed due to atrial fibrillation. Right Ventricle: The right ventricle is mildly dilated. The right ventricular systolic function is normal. Atria: The left atrium is moderately dilated. The right atrium is borderline dilated. There is no Doppler evidence for an interatrial shunt. Mitral Valve: The mitral valve is normal in structure and function. There is no mitral regurgitation noted. Aortic Valve: The aortic valve is normal in structure and function. No aortic regurgitation is present. Tricuspid Valve: The tricuspid valve is normal in structure and function. No tricuspid regurgitation. Pulmonary artery pressures cannot be estimated because of the lack of a measurable TR jet velocity. Pulmonic Valve: The pulmonic valve leaflets are thin and pliable; valve motion is normal. There is no pulmonic valvular regurgitation. Great Vessels: The aortic root is borderline dilated. The ascending aorta is normal in size. MMode/2D Measurements & Calculations LVIDd: 6.4 cm LVOT diam: 2.2 cm LVIDs: 5.1 cm Ao root diam: 3.5 cm FS: 20.6 % asc Aorta Diam: 3.4 cm EPSS: 1.0 cm IVSd: 0.97 cm LVPWd: 0.81 cm LV rushing. diameter/BSA (cm/m^2): 2.7 LV sys. diameter/BSA (cm/m^2): 2.1 LA A2 area: 34.6 cm2 RA long axis: 5.8 cm LA A4 area: 28.6 cm2 RA area: 22.8 cm2 LA length (vol): 6.5 cm RA vol: 76.2 ml LA vol: 129.9 ml RA : 31.5 ml/m2 LA vol index: 53.7 ml/m2 IVC diam: 2.3 cm RVD1 (basal): 4.9 cm TAPSE: 2.0 cm Doppler Measurements & Calculations Ao V2 max: 120.1 cm/sec LVOT Max Sukhdeep: 73.8 cm/sec Ao V2 mean: 92.0 cm/sec LV V1 max P.2 mmHg Ao max P.8 mmHg LV V1 VTI: 10.9 cm Ao mean P.6 mmHg JANET(I,D): 1.9 cm2 Ao V2 VTI: 21.6 cm JANET(V,D): 2.3 cm2 sev ratio: 0.50 JANET indexed to BSA (cm^2/m^2): 0.77 MV E max sukhdeep: 92.9 cm/sec PA V2 max: 80.9 cm/sec MV A max sukhdeep: 53.9 cm/sec PA V2 mean: 62.3 cm/sec MV E/A: 1.7 PA mean P.7 mmHg Med Peak E' Sukhdeep: 9.0 cm/sec E/E' med: 10.3 MV dec time: 0.22 sec MVA(VTI): 2.8 cm2 MV V2 mean: 57.3 cm/sec SV(LVOT): 40.3 ml MV mean P.7 mmHg MV V2 VTI: 14.4 cm Reading Physician:09:09 AM
[2022-07-28] MEDS: APIXABAN 5 MG TABLET PO ×2 (09:07→20:50)
[2022-07-28] MEDS: METOPROLOL IR 25 MG TABLET PO (09:38)
[2022-07-28 11:05] LABS: BUN Creatinine Ratio 18.2 (6-22); Blood Urea Nitrogen 20 mg/dL (9-20); Calcium 8.9 mg/dL (8.4-10.2); Carbon Dioxide 30 mmol/L (22-32); Chloride 104 mmol/L (98-107); Estimated Glomerular Filt Rate > 60 mL/min (>60); Glucose 83 mg/dL (80-110); HEMOLYSIS < 15 (0-50); Potassium 4.3 mmol/L (3.4-5.1); Sodium 141 mmol/L (137-145)
--- NOTE | 2022-07-28 11:18 | PC.NURSE ---
Day shift: Pt in ICU at approx 1100 bed 231. Nikki the FILTER FILLER was given report by this casualty underwriter at approx 1045. Pt remains on tele and HR [address] Diallo is aware. Pt's Spouse in room and aware of plan for Diltiazem drip. Pt has all personal belongings. Nothing was sent to pharmacy or put in safe on admit yesterday.
[2022-07-28] MEDS: SODIUM CHLORIDE 0.9% 1,000 ML 60 ML IV (11:21)
[2022-07-28] MEDS: DILTIAZEM 125 MG/125 ML PIGGYBACK IV (11:22)
--- NOTE | 2022-07-28 11:29 | P.PN_ITS ---
Subjective Subjective Date Patient Seen: 07/28/22 Interval history: The pt reports overall feeling well this morning, but still states he feels a pounding in his chest. He denies any overt chest pain, however. He denies any SOB or LE edema. Exam Vital Signs (past 8 hours): - 07/28/22 04:35 07/28/22 05:20 07/28/22 07:48 Temperature 96.6 F L Pulse Rate 137 H 138 H Respiratory Rate 17 Blood Pressure 123/88 124/96 H Pulse Oximetry 96 96 98 Oxygen Delivery Method Room Air Oxygen Flow Rate 0 0 07/28/22 09:37 Temperature 97.8 F Pulse Rate 140 H Respiratory Rate 18 Blood Pressure 133/89 Pulse Oximetry 96 Oxygen Delivery Method Oxygen Flow Rate 0 Oxygen Delivery Method Room Air Oxygen Flow Rate 0 Narrative Exam Narrative: Gen: NAD, sitting comfortably in bed, appears well CV: regular rhythm, tachycardic, no murmurs Resp: clear to auscultation bilaterally Abd: soft, nontender, nondistended, normoactive bowel sounds Ext: no edema Objective Labs 07/27/22 13:49 07/28/22 10:22 Labs: Laboratory Results - last 24 hr 07/27/22 07/27/22 07/27/22 13:49 13:49 13:49 WBC 6.5 RBC 5.68 Hgb 15.4 Hct 47.3 MCV 83.3 MCH 27.2 MCHC 32.6 RDW 14.4 Plt Count 164 Neut % (Auto) 77.5 H Lymph % (Auto) 14.1 L [place] % (Auto) 6.4 Eos % (Auto) 1.2 L Baso % (Auto) 0.8 Neut # (Auto) 5100 Lymph # (Auto) 900 L [place] # (Auto) 400 Eos # (Auto) 100 Baso # (Auto) 100 PT 14.8 H INR 1.3 D-Dimer 342 Sodium 137 Potassium 3.9 Chloride 103 Carbon Dioxide 27 BUN 16 Creatinine 0.98 Estimated GFR > 60 BUN/Creatinine Ratio 16.3 Glucose 108 Calcium 9.0 Magnesium Total Bilirubin 0.7 AST 29 ALT 34 Alkaline Phosphatase 53 Total Creatine Kinase 66 CK-MB (CK-2) TNP CK-MB (CK-2) Rel Index TNP Troponin I < 0.012 NT-Pro-B Natriuret Pep 448 Total Protein 6.7 Albumin 4.2 Globulin 2.5 Albumin/Globulin Ratio 1.7 Lipase 143 SARS-CoV-2 (PCR) 07/27/22 07/28/22 16:23 10:22 WBC RBC Hgb Hct MCV MCH MCHC RDW Plt Count Neut % (Auto) Lymph % (Auto) [place] % (Auto) Eos % (Auto) Baso % (Auto) Neut # (Auto) Lymph # (Auto) [place] # (Auto) Eos # (Auto) Baso # (Auto) PT INR D-Dimer Sodium 141 Potassium 4.3 Chloride 104 Carbon Dioxide 30 BUN 20 Creatinine 1.10 Estimated GFR > 60 BUN/Creatinine Ratio 18.2 Glucose 83 Calcium 8.9 Magnesium 2.0 Total Bilirubin AST ALT Alkaline Phosphatase Total Creatine Kinase CK-MB (CK-2) CK-MB (CK-2) Rel Index Troponin I NT-Pro-B Natriuret Pep Total Protein Albumin Globulin Albumin/Globulin Ratio Lipase SARS-CoV-2 (PCR) Negative PFSH Medical History Arthritis Back pain (~2015) Chicken pox COVID-19 DDD (degenerative disc disease) DJD (degenerative joint disease) Elevated LDL cholesterol level Hearing loss History of COVID-19 History of malignant neoplasm of prostate History of prostate cancer Jaw fracture Malignant neoplasm of prostate (12/07/16) Measles Mumps Nocturia Ocular migraine Right knee pain (12/19/16) Weight loss, intentional Surgical History Anesthesia History of prostatectomy (~1995) History of spinal fusion (~2017) History of tonsillectomy Mandibular fracture (~1967) S/P left knee arthroscopy Family History Father History of heart disease Mother No problems noted. Social History household members: spouse Smoking Status: Former smoker second hand exposure: No alcohol intake: current substance use type: does not use Assessment & Plan Assessment & Plan narrative: Pt is a 77yo man with hyperlipidemia here with fatigue and palpitations, found to be in atrial flutter. 1) Atrial flutter: HR persistently in the 120-140s. Pt otherwise asymptomatic and cardiovascular stable. - Echo ordered, to be completed today - Cardiology was consulted from the ED. Pts does request transfer today to a facility with Cardiology in-house and available. Discussed with Dr Penn and Dr Lehman, Cardiology. Dr Lehman, on-call for [facility], does not feel that transfer is warranted at this time. They would not recommend [facility] Cardioversion today, until pt has failed medical therapies as he is stable, and they do not perform unless emergent over the weekend. This is reportedly the case for all surrounding facilities as well. Dr Penn did give additional medical recommendations today. - Restart Diltiazem drip - Continue PO Metoprolol tartrate at 75mg TID - Start 60cc/hr NS to help with BP support - Continue Eliquis for anticoagulation - IV Metoprolol PRN for HR > 160 or symptomatic. If this is needed again, re- consider for transfer 2)? Hyperlipidemia: - Continue home statin FEN: General diet DVT ppx: On Eliquis Code: Full Dispo: Pending stabilization of HR and able to wean from IV Diltiazem. Time Spent With Patient Critical Care time: I spent a total of [] minutes of critical care time on this patient's care today; this time is exclusive of procedural time. Quality VTE Deep Vein Thrombosis/Pulmonary Embolism Present on Admission: No
[2022-07-28] MEDS: METOPROLOL IR 25 MG TABLET 75 MG PO ×3 (12:26→23:20)
[2022-07-28 12:52] LABS: MRSA (Nasal) PCR Not Detected (Not Detect)
--- NOTE | 2022-07-28 15:52 | CM.DANOTE ---
DCP continued: Patient is a 77 yr old make who was admitted for Atrial flutter. CM met with the patient at the bedside and explained role. Patient was A&O x4 during meeting. patients was also at bedside during CM meeting. Patient stated they live in a two story home however they have a elevator chair to help him with stairs if needed at DC but at his baseline is completely independent with all ADLs and drives. PCP Bee Diallo Insurance: [employer] M[employer] and selfpay Plan: DC home with when medically stable. no identified DC planning needs at this time. Ghazal Flores RNunit trust manager Discharge Planning/Care Management CM Discharge Assessment Start: 07/28/22 15:48 Freq: Status: Active Protocol: Document 07/28/22 15:49 HS (Rec: 07/28/22 15:51 HS [id number]) Discharge Planning Assessment Assigned Sports Cartoonist Ghazal Flores RNunit trust manager DPOA/Assigned Designee Name Jazmyn Navarro Contact Information [phone] Advance Directives? Yes Advance Directives on File No: Pt's spouse will bring in. History Provided By Patient,Family Member,Medical Record Prior Living Arrangements House Household Members spouse Type of transporation used prior to Drives own vehicle admit Independent with ADL's Yes Is patient alert and oriented? Yes Caregiver for Another No DME Already Rented / Owned Cane Barriers to Discharge Yes Comment chair lift in home 7 steps, one rail accessible, to enty did stair training successfully today with PT Discharge Plan Home Transportation Arrangement spouse will drive. Additional Comment pt and spouse hopeful for d/c home tomorrow...perhaps early afternoon Medicare Choice List Provided Yes Whiteboard Updated in Patient Room with Yes name and ext. # of Sports Cartoonist Review Status In Process Next Review Type Continued Stay Review
[2022-07-28] MEDS: MELATONIN 3 MG TABLET 9 MG PO (20:50)
[2022-07-28] MEDS: ACETAMINOPHEN 325 MG TABLET 650 MG PO (20:50)
[2022-07-28] MEDS: PRAVASTATIN 20 MG TABLET 10 MG PO (23:19)
[2022-07-29] VITALS (164 sets, daily range): BP systolic 111–151; BP diastolic 70–91; PULSE 48–137; RESP 10–34; TEMP 36.8–37.4; O2SAT 92–99
[2022-07-29] MEDS: SODIUM CHLORIDE 0.9% 1,000 ML 60 ML IV (03:15)
--- NOTE | 2022-07-29 06:24 | PC.NURSE ---
Night Note-Patient remains in A-flutter CVR 70s at rest, increases to 120 briefly while ambulating to BR, denies chest pain, pressure, palpitations, shortness of breath, or dizziness. Diltiazem gtt 2.5mg/hr most of the night, receiving PO metoprolol Q6h.
[2022-07-29] MEDS: METOPROLOL IR 25 MG TABLET 75 MG PO ×3 (06:29→17:56)
--- NOTE | 2022-07-29 08:33 | P.PN_ITS ---
Subjective Subjective Date Patient Seen: 07/29/22 Time Patient Seen: 08:33 Interval history: Patient seen and evaluated this morning states he had a good night sleep last night. Heart rates much better. Still relatively asymptomatic although initially some shortness of breath. Has had bowel movement urination ambulating and tolerating diet. No chest pain. Exam Vital Signs (past 8 hours): - 07/29/22 01:00 07/29/22 01:00 07/29/22 01:12 Temperature Pulse Rate 70 70 Respiratory Rate 16 16 Blood Pressure 117/78 Oxygen Delivery Method 07/29/22 02:00 07/29/22 02:00 07/29/22 03:00 Temperature Pulse Rate 71 72 Respiratory Rate 12 14 Blood Pressure 112/76 Oxygen Delivery Method 07/29/22 03:00 07/29/22 03:04 07/29/22 04:00 Temperature Pulse Rate 70 Respiratory Rate 17 Blood Pressure 112/71 Oxygen Delivery Method Room Air 07/29/22 04:01 07/29/22 04:01 07/29/22 04:33 Temperature 98.4 F Pulse Rate 75 78 Respiratory Rate 19 17 Blood Pressure 123/76 Oxygen Delivery Method 07/29/22 05:00 07/29/22 05:00 07/29/22 06:00 Temperature Pulse Rate 70 Respiratory Rate 14 Blood Pressure 124/82 136/84 Oxygen Delivery Method 07/29/22 06:00 07/29/22 06:39 07/29/22 06:40 Temperature Pulse Rate 78 92 H 92 H Respiratory Rate 16 14 16 Blood Pressure Oxygen Delivery Method 07/29/22 06:45 07/29/22 06:50 07/29/22 06:55 Temperature Pulse Rate 92 H 92 H 92 H Respiratory Rate 16 13 17 Blood Pressure Oxygen Delivery Method 07/29/22 07:00 07/29/22 07:00 07/29/22 07:05 Temperature Pulse Rate 93 H 93 H Respiratory Rate 19 14 Blood Pressure 120/81 Oxygen Delivery Method 07/29/22 07:10 07/29/22 07:15 07/29/22 07:20 Temperature Pulse Rate 93 H 93 H 74 Respiratory Rate 18 15 10 L Blood Pressure Oxygen Delivery Method 07/29/22 07:25 Temperature Pulse Rate 71 Respiratory Rate 17 Blood Pressure Oxygen Delivery Method Oxygen Delivery Method Room Air Oxygen Flow Rate 0 Narrative Exam Narrative: Gen.: Alert and oriented x3 no apparent distress. HEENT: NCAT PERRLA tympanic membranes are clear nares are patent oral mucosa is moist no tonsillar hypertrophy neck is supple without lymphadenopathy no thyroid enlargement. Cardio: S1-S2 irregular rate and rhythm no murmurs appreciated. Respiratory: Lungs are clear to auscultation no wheezes or crackles normal r espiratory effort. Abdomen: Soft nontender no rebound or guarding no liver spleen enlargement no ap preciable hernias Extremities: Full range of motion no appreciable weakness no cyanosis or edema. Neurologic: Grossly intact. Objective Labs 07/27/22 13:49 07/28/22 10:22 Labs: Laboratory Results - last 24 hr 07/28/22 07/28/22 10:22 11:00 Sodium 141 Potassium 4.3 Chloride 104 Carbon Dioxide 30 BUN 20 Creatinine 1.10 Estimated GFR > 60 BUN/Creatinine Ratio 18.2 Glucose 83 Calcium 8.9 Magnesium 2.0 Nasal Screen MRSA (PCR) Not detected PFSH Medical History Arthritis Back pain (~2015) Chicken pox COVID-19 DDD (degenerative disc disease) DJD (degenerative joint disease) Elevated LDL cholesterol level Hearing loss History of COVID-19 History of malignant neoplasm of prostate History of prostate cancer Jaw fracture Malignant neoplasm of prostate (12/07/16) Measles Mumps Nocturia Ocular migraine Right knee pain (12/19/16) Weight loss, intentional Surgical History Anesthesia History of prostatectomy (~1995) History of spinal fusion (~2017) History of tonsillectomy Mandibular fracture (~1967) S/P left knee arthroscopy Family History Father History of heart disease Mother No problems noted. Social History household members: spouse Smoking Status: Former smoker second hand exposure: No alcohol intake: current substance use type: does not use Assessment & Plan Assessment and plan (1) Atrial flutter: Status: Acute Plan Atrial flutter Patient's heart rate is improved doing well. Echocardiogram reviewed. Patient on immediate release metoprolol and diltiazem drips. Heart rates now in the 70s blood pressure stable patient relatively asymptomatic. Start oral Cardizem continue with oral metoprolol wean Cardizem and drips. Monitor heart rate throughout the day. If heart rate stays stable with oral medication consider discharge tomorrow. Continue Eliquis for stroke prevention. Hypertension blood pressure is currently well controlled and tolerating new blood pressure medication Hyperlipidemia continue on statin Code status full code Disposition plan discharge 24 hours if heart rate stable on oral medication Time Spent With Patient Critical Care time: I spent a total of [] minutes of critical care time on this patient's care today; this time is exclusive of procedural time. Quality VTE Deep Vein Thrombosis/Pulmonary Embolism Present on Admission: No
[2022-07-29] MEDS: APIXABAN 5 MG TABLET PO ×2 (08:39→21:00)
[2022-07-29] MEDS: dilTIAZem CD 120 MG CAP PO ×2 (08:39→17:56)
--- NOTE | 2022-07-29 20:39 | PC.NURSE ---
Addendum entered by Lucy Lockhrat R.N. 07/30/22 06:19: Heart rate elevated even after rest. Cardizem drip started at 5 mg/hr and awaiting results. Addendum entered by Lucy Lockhart R.N. 07/30/22 05:56: Heart rate between 60-100 all shift. Heart rate slightly elevated more towards morning after getting out of bed to use bathroom. Heart rate slowly decreasing after rest. Original Note: Patient awake alert, heart rate between 100-125 consistently, given extra dose of cardizem at end of last shift. very concerned that his heart will stop. Wanting to restart iv cardiem drip before 10pm per Dr. Mccracken order. Patient and family reassured as to status, patient denies chest pain of shortness of breath.
[2022-07-29] MEDS: MELATONIN 3 MG TABLET 9 MG PO (21:00)
[2022-07-29] MEDS: PRAVASTATIN 20 MG TABLET 10 MG PO (21:00)
[2022-07-29] MEDS: ACETAMINOPHEN 325 MG TABLET 650 MG PO (21:00)
[2022-07-30] VITALS (140 sets, daily range): BP systolic 112–140; BP diastolic 73–106; PULSE 57–126; RESP 6–46; TEMP 36.2–36.4; O2SAT 89–98
[2022-07-30 04:51] LABS: Add Manual Diff / Slide Review NO; Basophils Absolute Auto 0 /uL (0-100); Basophils Percent Auto 0.4 % (0-2); Eosinophils Absolute Auto 100 /uL (0-450); Eosinophils Percent Auto 1.5 % (2-4); Hematocrit 45.7 % (41-53); Hemoglobin 15.2 g/dL (13.5-17.5); Lymphocytes Absolute Auto 1400 /uL (1100-4500); Lymphocytes Percent Auto 19.5 % (25-40); Mean Corpuscular HGB Conc 33.3 % (30-36); Mean Corpuscular Hemoglobin 27.5 PG (26-34); Mean Corpuscular Volume 82.6 fL (80-100); Monocytes Absolute Auto 400 /uL (0-900); Monocytes Percent Auto 6.2 % (3-14); Neutrophils Absolute Auto 5100 /uL (1500-7000); Neutrophils Percent Auto 72.4 % (50-75); Platelet Count 143 X10^3/uL (150-400); Red Blood Cell Count 5.54 X10^6/uL (4.5-5.9); Red Cell Distribution Width 14.3 % (11.6-14.8)
[2022-07-30 04:57] LABS: Alanine Aminotransferase 37 IU/L (<50); Albumin 3.3 g/dL (3.5-5.0); Albumin Globulin Ratio 1.4 (1.0-2.8); Alkaline Phosphatase 51 U/L (38-126); Aspartate Aminotransferase 29 IU/L (17-59); BUN Creatinine Ratio 19.4 (6-22); Bilirubin Total 0.8 mg/dL (0.2-1.3); Blood Urea Nitrogen 19 mg/dL (9-20); Calcium 8.4 mg/dL (8.4-10.2); Carbon Dioxide 26 mmol/L (22-32); Chloride 105 mmol/L (98-107); Estimated Glomerular Filt Rate > 60 mL/min (>60); Globulin 2.4 g/dL (1.7-4.1); Glucose 94 mg/dL (80-110); HEMOLYSIS 16 (0-50); Sodium 138 mmol/L (137-145); Total Protein 5.7 g/dL (6.3-8.2)
[2022-07-30] MEDS: METOPROLOL IR 25 MG TABLET 75 MG PO ×3 (05:31→17:33)
[2022-07-30] MEDS: DILTIAZEM 125 MG/125 ML PIGGYBACK IV (06:14)
[2022-07-30] MEDS: APIXABAN 5 MG TABLET PO ×2 (08:51→20:57)
[2022-07-30] MEDS: dilTIAZem CD 120 MG CAP PO ×2 (08:51→10:02)
--- NOTE | 2022-07-30 10:04 | PM.PN.1 ---
Subjective Subjective Date Patient Seen: 07/30/22 Time Patient Seen: 10:04 Interval history: Patient seen and evaluated at bedside. Reviewed care with day nurse. Blood pressure was a little bit elevated last evening given an additional dose of oral Cardizem. For some reason his metoprolol was held in the middle of the night last night. Ended up getting back on Cardizem drips he stopped that this morning. Pulses much better. Blood pressure stable no hypotension he feels fine without any concerns. Eating well walking to the bathroom. A little bit anxious. Exam Vital Signs (past 8 hours): - 07/30/22 02:55 07/30/22 03:00 07/30/22 03:00 Pulse Rate 69 76 Respiratory Rate 18 17 Blood Pressure 130/75 Pulse Oximetry 93 93 Oxygen Delivery Method Oxygen Flow Rate Fraction of Inspired Oxygen 07/30/22 03:01 07/30/22 04:00 07/30/22 04:00 Pulse Rate 78 92 H Respiratory Rate 18 18 Blood Pressure 133/86 Pulse Oximetry 93 94 Oxygen Delivery Method Oxygen Flow Rate Fraction of Inspired Oxygen 07/30/22 04:07 07/30/22 04:53 07/30/22 05:00 Pulse Rate 93 H 93 H Respiratory Rate 19 Blood Pressure 124/80 Pulse Oximetry 96 96 Oxygen Delivery Method Nasal Cannula Oxygen Flow Rate 4 Fraction of Inspired Oxygen 36 07/30/22 05:00 07/30/22 05:57 07/30/22 06:00 Pulse Rate 126 H 125 H Respiratory Rate 13 9 L Blood Pressure 126/78 Pulse Oximetry 93 95 Oxygen Delivery Method Oxygen Flow Rate Fraction of Inspired Oxygen 07/30/22 06:00 07/30/22 06:11 07/30/22 06:15 Pulse Rate 126 H 110 H 110 H Respiratory Rate 10 L 10 L 9 L Blood Pressure Pulse Oximetry 95 96 97 Oxygen Delivery Method Oxygen Flow Rate Fraction of Inspired Oxygen 07/30/22 06:20 07/30/22 06:25 07/30/22 06:30 Pulse Rate 123 H 109 H 108 H Respiratory Rate 11 L 10 L 16 Blood Pressure Pulse Oximetry 94 96 96 Oxygen Delivery Method Oxygen Flow Rate Fraction of Inspired Oxygen 07/30/22 06:35 07/30/22 06:40 07/30/22 06:45 Pulse Rate 93 H 95 H 108 H Respiratory Rate 7 L 12 21 Blood Pressure Pulse Oximetry 95 94 97 Oxygen Delivery Method Oxygen Flow Rate Fraction of Inspired Oxygen 07/30/22 06:50 07/30/22 06:55 07/30/22 07:00 Pulse Rate 92 H 92 H Respiratory Rate 13 13 Blood Pressure 131/82 Pulse Oximetry 94 95 Oxygen Delivery Method Oxygen Flow Rate Fraction of Inspired Oxygen 07/30/22 07:00 07/30/22 07:05 07/30/22 07:10 Pulse Rate 93 H 93 H 93 H Respiratory Rate 16 12 12 Blood Pressure Pulse Oximetry 93 95 95 Oxygen Delivery Method Oxygen Flow Rate Fraction of Inspired Oxygen 07/30/22 07:15 07/30/22 07:20 07/30/22 07:25 Pulse Rate 93 H 93 H 94 H Respiratory Rate 12 12 10 L Blood Pressure Pulse Oximetry 95 93 95 Oxygen Delivery Method Oxygen Flow Rate Fraction of Inspired Oxygen 07/30/22 07:00 07/30/22 07:40 07/30/22 07:30 Pulse Rate 93 H Respiratory Rate 11 L Blood Pressure Pulse Oximetry 96 95 Oxygen Delivery Method Room Air Room Air Oxygen Flow Rate Fraction of Inspired Oxygen 07/30/22 07:35 07/30/22 07:40 07/30/22 07:45 Pulse Rate 94 H 93 H 93 H Respiratory Rate 6 L 10 L 9 L Blood Pressure Pulse Oximetry 97 96 96 Oxygen Delivery Method Oxygen Flow Rate Fraction of Inspired Oxygen 07/30/22 07:50 07/30/22 07:55 07/30/22 08:00 Pulse Rate 93 H 93 H Respiratory Rate 9 L 10 L Blood Pressure 140/75 Pulse Oximetry 96 96 Oxygen Delivery Method Oxygen Flow Rate Fraction of Inspired Oxygen 07/30/22 08:00 07/30/22 08:05 07/30/22 08:10 Pulse Rate 94 H 93 H 93 H Respiratory Rate 13 9 L 9 L Blood Pressure Pulse Oximetry 94 97 94 Oxygen Delivery Method Oxygen Flow Rate Fraction of Inspired Oxygen 07/30/22 08:15 07/30/22 08:20 07/30/22 08:25 Pulse Rate 93 H 86 87 Respiratory Rate 12 10 L 22 Blood Pressure Pulse Oximetry 94 95 94 Oxygen Delivery Method Oxygen Flow Rate Fraction of Inspired Oxygen 07/30/22 08:30 07/30/22 08:35 07/30/22 08:40 Pulse Rate 85 93 H 93 H Respiratory Rate 24 25 H 25 H Blood Pressure Pulse Oximetry 96 96 96 Oxygen Delivery Method Oxygen Flow Rate Fraction of Inspired Oxygen 07/30/22 08:45 07/30/22 08:50 07/30/22 08:59 Pulse Rate 93 H 93 H 93 H Respiratory Rate 24 24 21 Blood Pressure Pulse Oximetry 96 95 96 Oxygen Delivery Method Oxygen Flow Rate Fraction of Inspired Oxygen 07/30/22 09:00 07/30/22 09:01 07/30/22 09:01 Pulse Rate 93 H 93 H Respiratory Rate 24 18 Blood Pressure 136/106 H Pulse Oximetry 96 96 Oxygen Delivery Method Oxygen Flow Rate Fraction of Inspired Oxygen 07/30/22 09:05 07/30/22 09:10 07/30/22 09:15 Pulse Rate 71 71 71 Respiratory Rate 25 H 17 11 L Blood Pressure Pulse Oximetry 96 96 96 Oxygen Delivery Method Oxygen Flow Rate Fraction of Inspired Oxygen 07/30/22 09:20 07/30/22 09:25 07/30/22 09:30 Pulse Rate 71 71 71 Respiratory Rate 20 24 28 H Blood Pressure Pulse Oximetry 95 95 95 Oxygen Delivery Method Oxygen Flow Rate Fraction of Inspired Oxygen 07/30/22 09:35 07/30/22 09:40 Pulse Rate 71 71 Respiratory Rate 15 15 Blood Pressure Pulse Oximetry 95 95 Oxygen Delivery Method Oxygen Flow Rate Fraction of Inspired Oxygen Fraction of Inspired Oxygen 36 SaO2/FiO2 Ratio 266 Oxygen Delivery Method Room Air Oxygen Flow Rate 4 Narrative Exam Narrative: Gen.: Alert good historian HEENT: Pupils equal round and reactive or mucosa is moist Cardio: S1-S2 irregular rate and rhythm Respiratory: Lungs are clear to auscultation no wheezes or crackles normal respiratory effort. Abdomen: Soft nontender no rebound or guarding no liver spleen enlargement no appreciable hernias Extremities: Full range of motion no appreciable weakness no cyanosis or edema. Neurologic: Grossly intact. Objective Labs 07/30/22 04:07 07/30/22 04:07 Labs: Laboratory Results - last 24 hr 07/30/22 07/30/22 04:07 04:07 WBC 7.0 RBC 5.54 Hgb 15.2 Hct 45.7 MCV 82.6 MCH 27.5 MCHC 33.3 RDW 14.3 Plt Count 143 L Neut % (Auto) 72.4 Lymph % (Auto) 19.5 L [place] % (Auto) 6.2 Eos % (Auto) 1.5 L Baso % (Auto) 0.4 Neut # (Auto) 5100 Lymph # (Auto) 1400 [place] # (Auto) 400 Eos # (Auto) 100 Baso # (Auto) 0 Sodium 138 Potassium 4.0 Chloride 105 Carbon Dioxide 26 BUN 19 Creatinine 0.98 Estimated GFR > 60 BUN/Creatinine Ratio 19.4 Glucose 94 Calcium 8.4 Total Bilirubin 0.8 AST 29 ALT 37 Alkaline Phosphatase 51 Total Protein 5.7 L Albumin 3.3 L Globulin 2.4 Albumin/Globulin Ratio 1.4 PFSH Medical History Arthritis Back pain (~2015) Chicken pox COVID-19 DDD (degenerative disc disease) DJD (degenerative joint disease) Elevated LDL cholesterol level Hearing loss History of COVID-19 History of malignant neoplasm of prostate History of prostate cancer Jaw fracture Malignant neoplasm of prostate (12/07/16) Measles Mumps Nocturia Ocular migraine Right knee pain (12/19/16) Weight loss, intentional Surgical History Anesthesia History of prostatectomy (~1995) History of spinal fusion (~2017) History of tonsillectomy Mandibular fracture (~1967) S/P left knee arthroscopy Family History Father History of heart disease Mother No problems noted. Social History household members: spouse Smoking Status: Former smoker second hand exposure: No alcohol intake: current substance use type: does not use Assessment & Plan Assessment and plan (1) Atrial flutter: Status: Acute Plan Atrial flutter increase patient's oral Cardizem to 240 mg once daily continued with metoprolol intermediate release 75 mg q.6 hours continue with Eliquis for stroke prevention. May give an extra dose of oral Cardizem if needed this evening. Off Cardizem drips. Blood pressure stable no chest pain no shortness of breath up ambulating and eating well. Urination and bowel movements stable. Hypertension. Blood pressure stable without hypotension. Hyperlipidemia on statin we will continue this Anticoagulation Eliquis Code status full code Disposition and plan discharge when pulse stable probably 24 hours Time Spent With Patient Critical Care time: I spent a total of [] minutes of critical care time on this patient's care today; this time is exclusive of procedural time. Quality VTE Deep Vein Thrombosis/Pulmonary Embolism Present on Admission: No
[2022-07-30] MEDS: ACETAMINOPHEN 325 MG TABLET 650 MG PO (20:57)
[2022-07-30] MEDS: MELATONIN 3 MG TABLET 9 MG PO (20:57)
[2022-07-30] MEDS: PRAVASTATIN 20 MG TABLET 10 MG PO (20:58)
[2022-07-31 00:06] VITALS: BP 128/75; PULSE 100; RESP 22; TEMP 36.4; O2SAT 98
[2022-07-31 04:49] LABS: Add Manual Diff / Slide Review NO; Basophils Absolute Auto 0 /uL (0-100); Basophils Percent Auto 0.6 % (0-2); Eosinophils Absolute Auto 100 /uL (0-450); Eosinophils Percent Auto 1.9 % (2-4); Hematocrit 45.1 % (41-53); Hemoglobin 15.2 g/dL (13.5-17.5); Lymphocytes Absolute Auto 1200 /uL (1100-4500); Lymphocytes Percent Auto 18.9 % (25-40); Mean Corpuscular HGB Conc 33.8 % (30-36); Mean Corpuscular Hemoglobin 27.6 PG (26-34); Mean Corpuscular Volume 81.5 fL (80-100); Monocytes Absolute Auto 500 /uL (0-900); Monocytes Percent Auto 7.7 % (3-14); Neutrophils Absolute Auto 4600 /uL (1500-7000); Neutrophils Percent Auto 70.9 % (50-75); Platelet Count 148 X10^3/uL (150-400); Red Blood Cell Count 5.53 X10^6/uL (4.5-5.9); Red Cell Distribution Width 14.1 % (11.6-14.8); White Blood Cell Count 6.5 X10^3/uL (4.5-11.0)
[2022-07-31 04:58] LABS: Alanine Aminotransferase 38 IU/L (<50); Albumin 3.3 g/dL (3.5-5.0); Albumin Globulin Ratio 1.4 (1.0-2.8); Alkaline Phosphatase 49 U/L (38-126); Aspartate Aminotransferase 29 IU/L (17-59); BUN Creatinine Ratio 21.9 (6-22); Bilirubin Total 0.6 mg/dL (0.2-1.3); Blood Urea Nitrogen 23 mg/dL (9-20); Calcium 8.5 mg/dL (8.4-10.2); Carbon Dioxide 25 mmol/L (22-32); Chloride 106 mmol/L (98-107); Estimated Glomerular Filt Rate > 60 mL/min (>60); Globulin 2.3 g/dL (1.7-4.1); Glucose 102 mg/dL (80-110); HEMOLYSIS < 15 (0-50); Potassium 3.8 mmol/L (3.4-5.1); Sodium 138 mmol/L (137-145); Total Protein 5.6 g/dL (6.3-8.2)
[2022-07-31] MEDS: METOPROLOL IR 25 MG TABLET 75 MG PO ×2 (05:51)
--- NOTE | 2022-07-31 05:55 | PC.NURSE ---
Patient with heart rate in acceptable limits. Heart rate between 60-100 all shift. No complaints of chest pain, or shortness of breath.
[2022-07-31 07:45] VITALS: PULSE 71; RESP 20; TEMP 37.2; O2SAT 96
[2022-07-31] MEDS: dilTIAZem CD 120 MG CAP 240 MG PO (08:30)
[2022-07-31] MEDS: APIXABAN 5 MG TABLET PO (08:31)
--- NOTE | 2022-07-31 09:10 | P.DS_ITS ---
History of Present Illness History of Present Illness Date Patient Seen: 07/31/22 Chief complaint: sent by DR payne heart rate & BP Narrative: 77-year-old male admitted via emergency department because of persistent atrial flutter.? Patient had a sense of palpitations difficulty sleeping overnight.? Began sometime yesterday he thinks probably.? No other associated symptoms including no real shortness of breath maybe a generalized sense of fatigue no chest pain no syncope near-syncope Had an episode about 3 weeks ago when he was sort of rushing to catch a bus in [facility] and he got lightheaded dizzy felt the same sort of palpitations.? It passed on its own after 5 or 10 minutes and has not recurred since that time ER evaluation was pretty unremarkable except for the atrial flutter with heart rate about 150 with 2-1 conduction on ECG.? No response to IV diltiazem continuously infused.? Cardiology suggested oral metoprolol with escalating doses until heart rate is controlled.? Cardiology also suggested initiation of anticoagulation with direct oral anticoagulant and outpatient follow-up with Cardiology Discharge Providers Provider Date of admission: 07/27/22 16:19 Discharge Date: 07/31/22 Primary care physician: Bee Diallo MD Discharge provider: Bee Diallo MD Summary Hospital Course Discharge Diagnosis: Atrial flutter Hyperlipidema Hospital Course: The pt was admitted with tachycardia due to atrial flutter. Cardiology was consulted via telephone. He was initially on IV Diltiazem in the ED, which was ineffective. He was then placed on PO Metoprolol Tartrate, which was also ineffective on its own. He received a single dose of IV Digoxin without any benefit. He was then continue on PO Metoprolol in addition to IV Diltiazem drip, and his HR ultimately improved. He was then transitioned to PO Diltiazem. His HR remained in good range. His BP remained stable throughout the hospitalization. He will continue on PO Metoprolol and PO Diltiazem at discharge, in addition to Eliquis which was started at admission. He will have f/u with Cardiology as an outpatient. Status at Discharge Cognitive/behavioral status at discharge: oriented Functional status at discharge: independent ambulation Overall status at discharge: patient is back to baseline Exam Vital Signs (past 8 hours): - 07/31/22 07:45 Temperature 99.0 F Pulse Rate 71 Respiratory Rate 20 Pulse Oximetry 96 Oxygen Flow Rate 0 Fraction of Inspired Oxygen 36 SaO2/FiO2 Ratio 266 Oxygen Delivery Method Room Air Oxygen Flow Rate 0 Narrative Exam Narrative: Gen: NAD, sitting comfortably in chair, appears well CV: RRR, no murmurs Resp: clear to auscultation bilaterally Abd: soft, nontender, nondistended Ext: no edema Objective Labs 07/31/22 04:09 07/31/22 04:09 Labs: Laboratory Results - last 24 hr 07/31/22 07/31/22 04:09 04:09 WBC 6.5 RBC 5.53 Hgb 15.2 Hct 45.1 MCV 81.5 MCH 27.6 MCHC 33.8 RDW 14.1 Plt Count 148 L Neut % (Auto) 70.9 Lymph % (Auto) 18.9 L [place] % (Auto) 7.7 Eos % (Auto) 1.9 L Baso % (Auto) 0.6 Neut # (Auto) 4600 Lymph # (Auto) 1200 [place] # (Auto) 500 Eos # (Auto) 100 Baso # (Auto) 0 Sodium 138 Potassium 3.8 Chloride 106 Carbon Dioxide 25 BUN 23 H Creatinine 1.05 Estimated GFR > 60 BUN/Creatinine Ratio 21.9 Glucose 102 Calcium 8.5 Total Bilirubin 0.6 AST 29 ALT 38 Alkaline Phosphatase 49 Total Protein 5.6 L Albumin 3.3 L Globulin 2.3 Albumin/Globulin Ratio 1.4 PFSH Medical History Arthritis Back pain (~2015) Chicken pox COVID-19 DDD (degenerative disc disease) DJD (degenerative joint disease) Elevated LDL cholesterol level Hearing loss History of COVID-19 History of malignant neoplasm of prostate History of prostate cancer Jaw fracture Malignant neoplasm of prostate (12/07/16) Measles Mumps Nocturia Ocular migraine Right knee pain (12/19/16) Weight loss, intentional Surgical History Anesthesia History of prostatectomy (~1995) History of spinal fusion (~2017) History of tonsillectomy Mandibular fracture (~1967) S/P left knee arthroscopy Family History Father History of heart disease Mother No problems noted. Social History household members: spouse Smoking Status: Former smoker second hand exposure: No alcohol intake: current substance use type: does not use Discharge Plan Discharge Plan Patient Disposition: Home Discharge orders & Medications Prescriptions: New Eliquis 5 mg Tablet 5 mg PO BID Qty: 60 0RF metoprolol tartrate 25 mg Tablet 75 mg PO Q6H Qty: 270 0RF diltiazem HCl 120 mg Capsule,Extended Release 24hr 240 mg PO DAILY Qty: 60 0RF Continued pravastatin 10 mg tablet 10 mg PO BEDTIME Qty: 90 3RF multivitamin Tablet 1 tab PO DAILY celecoxib 100 mg capsule 100 mg PO BID Label Comments: TAKE 1 CAPSULE BY MOUTH TWICE DAILY Follow up/Referrals: Bee Diallo MD [Primary Care Provider] - 1 Month Diet/Activity/Treatments Diet: Diet as Tolerated and Regular Visit Report/Discharge Packet Instructions: Atrial Flutter, DI for Atrial Flutter Stand Alone Forms: Patient Portal/API, Stroke Signs & Symptoms Discharge Data Primary Care Provider: Bee Diallo Quality VTE Deep Vein Thrombosis/Pulmonary Embolism Present on Admission: No
--- NOTE | 2022-07-31 14:47 | CM.DPC ---
DCP Discharge Home Per MD, updated SW that pt is medically stable to d/c home with spouse and is independent and back to baseline and no SW needs at this time. RN provided d/c instructions and spouse able to transport. Plan: Patient to d/c home via spouse POV today and outpt f/u with PCP and no further SW needs. FELECIA Alcantar
== END 2022-07-31 10:00 | disposition home or self-care (01) | DRG 310 ==
LOC: ED 16:18 → AC 17:27 → ICU 07-28 12:57
PROVIDERS: Family Medicine; Admitting Provider Internal Medicine; Emergency Provider Emergency Medicine; PCP Family Medicine; Referring Provider Emergency Medicine; Visit Provider Family Medicine
DX: I48.92 Unspecified atrial flutter (principal); E78.5 Hyperlipidemia, unspecified; I10 Essential (primary) hypertension; Z20.822 Contact with and (suspected) exposure to COVID-19; Z87.891 Personal history of nicotine dependence; Z79.01 Long term (current) use of anticoagulants
CPT/HCPCS: 36415; 71045; 80048; 80053; 82550; 83690; 83735; 83880; 84484; 85025; 85379; 85610; 87635; 87797; 93005; 93010; 93306; 96365; 96366; 96375; 99223; 99233; 99284; C9803; J1160

== ENCOUNTER → 2022-11-10 13:41 | Outpatient (CLI) | payer MEDICARE, SELFPAY ==
[2022-07-27 18:06] VITALS: BMI 26.2
--- NOTE | 2022-11-10 | DI.ECHO.S_ITS ---
[facility]---------+ [facility] +---------+ : : [address] : : : : [id number] : : : : Phone: [phone] Echocardiogram Report + + :Name: SWATHI MACKAY Study Date: 11/10/2022 Height: 71 in : :[facility] ReadingLocation: Weight: 186 lb : : Gender: Male BSA: 2.0 m2 : :: 1945 Age: 77 yrs BP: 157/89 mmHg: :Reason For Study: Cardiomyopathy : :Ordering Physician: Bing. : :Dean Performed By: Shu Aleman : :Referring: DEAN SMART : + + Interpretation Summary 1) Normal left ventricular thickness, size, wall motion, and systolic function (EF 60-65%). 2) Normal right ventricular size and function. 3) No significant valvular abnormalities. 4) Compared to [facility] done 07/28/2022, LVEF has improved from 40-45% to 60- 65% on this study. Procedure: A two-dimensional transthoracic echocardiogram with color flow and Doppler was performed. The study quality was technically adequate. Comparison is made with the echocardiogram of 07/28/2022. Left Ventricle: The left ventricle is normal in size and wall thickness. The ejection fraction is estimated to be 60-65%. Diastolic parameters suggest a relaxation abnormality of the left ventricle, consistent with probable normal filling pressures. Right Ventricle: The right ventricle is normal size. The right ventricular systolic function is normal. Atria: The left atrial size is normal. Right atrial size is normal. There is no Doppler evidence for an interatrial shunt. Mitral Valve: The mitral valve leaflets appear mildly thickened, but open well. There is no mitral valve stenosis. There is no mitral regurgitation noted. Aortic Valve: The aortic valve is trileaflet. The aortic valve opens well. There is mild aortic valve sclerosis. There is no aortic valve stenosis. There is trace aortic regurgitation. Tricuspid Valve: The tricuspid valve is normal. There is no tricuspid stenosis. There is trace tricuspid regurgitation. Pulmonary artery pressures cannot be estimated because of the lack of a measurable TR jet velocity. Pulmonic Valve: The pulmonic valve leaflets are thin and pliable; valve motion is normal. There is no pulmonic valvular stenosis. There is trace pulmonic regurgitation. Great Vessels: The aortic root is normal size. The ascending aorta is at the upper limits of normal in size. The pulmonary artery is normal size. The IVC is of normal diameter and collapses greater than 50% with a sniff. This suggests a low right atrial pressure of 3 mm Hg. Pericardium/ Pleura There is no pericardial effusion. There is no pleural effusion. MMode/2D Measurements & Calculations LVIDd: 4.3 cm LVOT diam: 2.3 cm LVIDs: 2.7 cm Ao root diam: 3.7 cm FS: 37.2 % asc Aorta Diam: 3.9 cm IVSd: 1.0 cm LVPWd: 1.1 cm LV rushing. diameter/BSA (cm/m^2): 2.1 LV sys. diameter/BSA (cm/m^2): 1.3 LA A4 area: 12.6 cm2 RA long axis: 5.7 cm RA area: 18.0 cm2 RA vol: 48.7 ml RA : 23.8 ml/m2 RVD1 (basal): 3.1 cm LVLs ap4: 6.4 cm LVLd ap2: 7.6 cm TAPSE_phl: 2.6 cm LVLs ap2: 6.5 cm Doppler Measurements & Calculations Ao V2 max: 146.0 cm/sec LVOT Max Sukhdeep: 101.0 cm/sec Ao V2 mean: 103.0 cm/sec LV V1 max P.1 mmHg Ao max P.0 mmHg LV V1 VTI: 21.7 cm Ao mean P.0 mmHg JANET(I,D): 2.4 cm2 Ao V2 VTI: 35.5 cm JANET(V,D): 2.8 cm2 sev ratio: 0.61 JANET indexed to BSA (cm^2/m^2): 1.2 MV E max sukhdeep: 68.6 cm/sec PA V2 max: 74.6 cm/sec MV A max sukhdeep: 81.2 cm/sec PA V2 mean: 53.2 cm/sec MV E/A: 0.84 PA mean P.0 mmHg Med Peak E' Sukhdeep: 7.7 cm/sec PA pr(Accel): 24.6 mmHg E/E' med: 8.9 Lat Peak E' Sukhdeep: 8.9 cm/sec E/E' lat: 7.7 E/e' average: 8.3 MV dec time: 0.23 sec SV(LVOT): 86.3 ml AV VR_phl: 0.69 JANET(VTI)/BSA_phl: 1.3 Reading Physician:12:30 PM
== END ==
PROVIDERS: PCP Family Medicine; Referring Provider Internal Medicine Cardiovascular Disease; Visit Provider Internal Medicine Cardiovascular Disease
DX: I42.9 Cardiomyopathy, unspecified (principal); I35.8 Other nonrheumatic aortic valve disorders
CPT/HCPCS: 93306

== ENCOUNTER → 2022-11-20 07:53 | Outpatient (CLI) | payer MEDICARE, SELFPAY ==
[2022-07-27 18:06] VITALS: BMI 26.2
[2022-11-20 09:06] LABS: Add Manual Diff / Slide Review NO; Basophils Absolute Auto 0 /uL (0-100); Basophils Percent Auto 0.8 % (0-2); Eosinophils Absolute Auto 100 /uL (0-450); Eosinophils Percent Auto 1.4 % (2-4); Hematocrit 42.8 % (41-53); Hemoglobin 14.9 g/dL (13.5-17.5); Lymphocytes Absolute Auto 1100 /uL (1100-4500); Lymphocytes Percent Auto 19.8 % (25-40); Mean Corpuscular HGB Conc 34.7 % (30-36); Mean Corpuscular Hemoglobin 28.2 PG (26-34); Mean Corpuscular Volume 81.2 fL (80-100); Monocytes Absolute Auto 300 /uL (0-900); Monocytes Percent Auto 5.9 % (3-14); Neutrophils Absolute Auto 4000 /uL (1500-7000); Neutrophils Percent Auto 72.1 % (50-75); Platelet Count 150 X10^3/uL (150-400); Red Blood Cell Count 5.27 X10^6/uL (4.5-5.9); Red Cell Distribution Width 16.2 % (11.6-14.8); White Blood Cell Count 5.5 X10^3/uL (4.5-11.0)
[2022-11-20 09:52] LABS: BUN Creatinine Ratio 18.2 (6-22); Blood Urea Nitrogen 18 mg/dL (9-20); Carbon Dioxide 29 mmol/L (22-32); Chloride 104 mmol/L (98-107); Cholesterol 150 mg/dL (140-199); Estimated Glomerular Filt Rate > 60 mL/min (>60); Glucose 106 mg/dL (80-110); HDL Cholesterol 48 mg/dL (40-60); HEMOLYSIS 18 (0-50); LDL Cholesterol Calculated 87 mg/dL (<100); Potassium 4.6 mmol/L (3.4-5.1); Sodium 137 mmol/L (137-145); Triglycerides 76 mg/dL (35-150)
== END ==
PROVIDERS: PCP Family Medicine; Referring Provider Internal Medicine Cardiovascular Disease; Visit Provider Internal Medicine Cardiovascular Disease
DX: I10 Essential (primary) hypertension (principal); Z79.01 Long term (current) use of anticoagulants; E78.5 Hyperlipidemia, unspecified
CPT/HCPCS: 36415; 80048; 80061; 85025

== ENCOUNTER → 2023-02-12 09:08 | Outpatient (CLI) | payer MEDICARE, SELFPAY ==
[2022-07-27 18:06] VITALS: BMI 26.2
--- NOTE | 2023-02-14 01:58 | DI.NM.S_ITS ---
DATE OF SERVICE: 02/12/2023 PROCEDURE: Exercise treadmill stress and rest myocardial perfusion imaging with gating to assess ejection fraction and regional wall motion. ORDERING PROVIDER: Wilian Smart MD INDICATIONS: The patient is a 77-year-old male with a history of atrial flutter and cardiomyopathy. CARDIAC STRESS: The patient was able to exercise for 8 minutes and 1 second on a standard Jacky protocol suggesting excellent exercise capacity with an SOLOMON of -32%, achieving 10.1 METS. He had a normal heart rate and blood pressure response to exercise, achieving a maximum heart rate likely of around 122 BPM (85% of his predicted maximum), although considerable motion artifact prevents accurate assessment. He had no chest discomfort or other anginal symptoms. His resting ECG showed sinus rhythm with an occasional PVC and normal ST segments. With stress, there was considerable motion artifact but no obvious significant ST-segment shifts and his ECG immediately in recovery showed no significant ST abnormality. He had occasional isolated PACs and PVCs in recovery, but no complex ectopy. At 7 minutes of exercise at a heart rate of 144 BPM, 25.3 millicuries of technetium-99m Myoview was injected and he was imaged 10 minutes later using a gated SPECT acquisition protocol. The day prior while at rest, he had been injected with 27.5 millicuries of technetium-99m Myoview and was imaged 15 minutes later, again using a quantitated gated SPECT protocol. FINDINGS: 1. Raw data: There is fairly good myocardial tracer uptake although there is increased uptake of the spleen which clearly produces some attenuation artifact, particularly on the resting images. The lung/heart ratio is normal at 0.30 with a normal TID ratio of 0.77. 2. Quantitated gated SPECT: Post-stress ejection fraction is 75% without any focal wall motion abnormality, and specifically, the inferior wall appears to have normal contractility. The resting ejection fraction is calculated at 59%, although visually appears similar to that of the post-stress images with a normal resting end- diastolic volume of 99 mL. 3. Myocardial perfusion imaging: Post-stress supine images show a fairly normal myocardial perfusion pattern although with a subtle defect in the mid to distal inferior wall in a pattern consistent with diaphragmatic attenuation, supported by its complete resolution on the prone images which reveal a normal, homogeneous perfusion pattern. The resting images show a more significant perfusion defect in the inferior wall, likely due to the attenuation artifact from the spleen. There are no areas of improvement. IMPRESSION: 1. Normal myocardial perfusion study. 2. Subtle, fixed inferior perfusion defect that resolves on prone imaging, consistent with attenuation artifact. There is no compelling evidence for any myocardial ischemia or previous myocardial infarction. 3. Normal left ventricular size and systolic function without any focal wall motion abnormality. There is mildly increased tracer uptake within the spleen of uncertain significance. 4. Excellent exercise capacity without angina or obvious ECG evidence of ischemia. There are occasional PACs and PVCs, but no complex ectopy. Humberto Pa - RS/annabella/MT doc#: [id number]/job#: [id number] dd: 02/13/2023 16:45:00 dt: 02/14/2023 01:40:00 DICTATING MD/COPIES TO: Avery Garcias MD; Wilian Smart MD COPIES MNE: CHAPARRO;
== END ==
PROVIDERS: PCP Family Medicine; Referring Provider Internal Medicine Cardiovascular Disease; Visit Provider Internal Medicine Cardiovascular Disease
DX: I42.9 Cardiomyopathy, unspecified (principal); I48.3 Typical atrial flutter
CPT/HCPCS: 78452; 93017; A9502

== ENCOUNTER 2023-03-13 13:05 | Day surgery (SDC) | payer MEDICARE, SELFPAY ==
[2022-07-27 18:06] VITALS: BMI 26.2
--- NOTE | 2023-03-13 | PATH_ITS ---
[facility] Accession Number: [id number] No. of containers..01 Tissue . 01 Material submitted: . colon - RANDOM COLON BIOPSY . 01 Diagnosis: Random Colon, Biopsies: Colonic mucosa with no diagnostic abnormality. Negative for active, chronic, and microscopic colitis. Negative for dysplasia and malignancy. . MRV 03/16/2023 1323 Local . 01 Electronically signed: . Russel Reagan MD, PhD, Pathologist NPI- [id number] . 01 Gross description: . RANDOM COLON BIOPSY: Received in formalin are 2 fragment(s) of [place], soft tissue measuring 0.2 x 0.2 x 0.1 cm to 0.4 x 0.2 x 0.2 cm submitted entirely in 1 cassette(s) /EDEN 03/14/2023 1906 Local . 01 Pathologist provided ICD-10: R19.4 . 01 CPT . 438816 Specimen Comment: A courtesy copy of this report has been sent to [phone] Performed at: 01 [facility] [address] [place] [address] [id number] MD aT Gonzalez MD Phone: [phone]
[2023-03-13 13:29] VITALS: BMI 25.5
[2023-03-13 13:34] VITALS: BP 164/90; PULSE 56; RESP 21; TEMP 36.7; O2SAT 97
[2023-03-13] MEDS: LACTATED RINGERS 1,000 ML 150 ML IV (13:39)
--- NOTE | 2023-03-13 14:08 | PM.HP.1 ---
History of Present Illness History of Present Illness Date Patient Seen: 03/13/23 Time Patient Seen: 14:08 Chief complaint: SDC Narrative: 77-year-old man personal history of colonic polyps here for screening colonoscopy. Last colonoscopy approximately 10 years ago normal. No family history of intestinal malignancy. He endorses new constipation no blood per rectum unintentional weight loss. [facility] Medical History History of COVID-19 History of malignant neoplasm of prostate COVID-19 Mumps Measles Chicken pox Right knee pain (12/19/16) Malignant neoplasm of prostate (12/07/16) Jaw fracture Arthritis DDD (degenerative disc disease) DJD (degenerative joint disease) Back pain (~2015) Weight loss, intentional Elevated LDL cholesterol level Nocturia History of prostate cancer Ocular migraine Hearing loss Surgical History Anesthesia Mandibular fracture (~1967) History of spinal fusion (~2017) S/P left knee arthroscopy History of tonsillectomy History of prostatectomy (~1995) Family History Father History of heart disease Mother No problems noted. Social History household members: spouse Smoking Status: Former smoker second hand exposure: No alcohol intake: current substance use type: does not use Meds Home Medications and Allergies Home Medications Medication Instructions Recorded Confirmed Type multivitamin 1 tab PO DAILY 09/18/17 03/13/23 History celecoxib 100 mg capsule 100 mg PO BID PRN Pain (Scale 07/27/22 03/13/23 History Score 1-3) metoprolol tartrate 50 mg tablet 50 mg PO BID #180 tabs 08/21/22 Rx pravastatin 10 mg tablet 10 mg PO BEDTIME #90 tabs 01/10/23 03/13/23 Rx amlodipine 5 mg tablet 5 mg PO DAILY 03/13/23 03/13/23 History losartan 50 mg tablet 50 mg PO DAILY 03/13/23 03/13/23 History Allergies Allergy/AdvReac Type Severity Reaction Status Date / Time No Known Allergies Allergy Unknown Verified 01/24/23 10:55 Exam Vital Signs (past 8 hours): - 03/13/23 13:34 Temperature 98.1 F Pulse Rate 56 L Respiratory Rate 21 Blood Pressure 164/90 H Pulse Oximetry 97 Oxygen Delivery Method Room Air Oxygen Delivery Method Room Air Narrative Exam Narrative: General adult man alert oriented no acute distress Abdomen soft nontender nondistended Assessment & Plan Assessment & Plan narrative: The patient requires colorectal screening and colonoscopy is recommended. Technical details were discussed. Risks, benefits, alternatives explained. Risks including but not limited to myocardial infarction, aspiration, bleeding, pain, missed lesion, incomplete examination, need for further radiographic studies, colonic perforation, and need for major abdominal surgery were discussed. All questions were answered to their satisfaction, and they are in agreement with this plan.
[2023-03-13 14:28] VITALS: BP 109/75; PULSE 54; RESP 14; TEMP 36.1; O2SAT 97
[2023-03-13 14:33] VITALS: BP 115/76; PULSE 52; RESP 12; O2SAT 96
--- NOTE | 2023-03-13 14:36 | PM.OP.COLON ---
Operative Date/Time/Diagnoses Date of procedure: 03/13/23 Time of procedure: 14:36 Pre-op diagnosis: Colorectal screening Post-op diagnosis: same Procedure & Clinicians Study performed: Colonoscopy and random colonic biopsy Same procedure as scheduled: Yes Indications: Colorectal screening Surgeon: Parker Leblanc Procedure Notes Procedure in detail: The history and physical was performed/updated and the patient is ASA class is 2. The procedure was discussed in detail with the patient. Potential risks complications including infection, bleeding, missed diagnosis, perforation, need for surgery, and were explained. Their questions were answered and informed consent was obtained. Patient was brought to the procedure room and placed standard monitoring equipment. The patient's vital signs were monitored continuously throughout the entire procedure. Prior to starting time-out was performed. The patient was placed in the left lateral recumbent position. Procedural sedation was administered by anesthesia. Examination began with a thorough inspection of the perianal area there was no evidence of fissures, fistulae, external hemorrhoids or cutaneous malignancy. The colonoscopy scope was then placed into the anal canal and was advanced to the cecum, which was identified by the ileocecal valve, the appendiceal orifice and the confluence of the taenia. The scope was then slowly withdrawn examining colon thoroughly in all directions, irrigating it of any residual stool. Unremarkable colonoscopy. No masses or polyps. A random colonic biopsy was taken with forcepsThe withdrawl time was The patient tolerated the procedure well. They will be discharged once criteria are met. The prep was of good/excellent quality. The withdrawl time was 6 minutes. Specimen(s): other (Random colonic biopsy) Impression: Normal colonoscopy Post-procedure Plan for aftercare: No further colonoscopy necessary unless symptomatic Disposition: same day surgery
[2023-03-13 14:37] VITALS: BP 114/78; PULSE 52; RESP 15; TEMP 36.9; O2SAT 97
[2023-03-13 14:39] VITALS: BP 118/73; PULSE 49
== END 2023-03-13 14:57 | disposition home or self-care (01) ==
PROVIDERS: PCP Family Medicine; Referring Provider Surgery; Visit Provider Surgery
PROC: 0DJD8ZZ Inspection of Lower Intestinal Tract, Via Natural or Artificial Opening Endoscopic (ICD-10-PCS; CPT 45378; principal; 2023-03-13 14:00)
DX: Z12.11 Encounter for screening for malignant neoplasm of colon (principal)
CPT/HCPCS: 45380; J2704

== ENCOUNTER → 2023-06-30 14:13 | Outpatient (CLI) | payer MEDICARE, SELFPAY ==
[2022-07-27 18:06] VITALS: BMI 26.2
--- NOTE | 2023-06-30 14:14 | DI.MRI.S_ITS ---
PROCEDURE: MR LUMBAR SPINE WO CON INDICATIONS: Spinal stenosis, lumbar region TECHNIQUE: Noncontrast sagittal T1 spin echo and T2 fast echo, sagittal STIR, and T2 fast spin echo through the lumbar spine. In cases with scoliosis, additional coronal T2 fast spin echo may be performed. COMPARISON: [facility], CT, CT LUMBAR SPINE WO CON, 06/26/2019, 10:04. [facility] [place], CR, XR LUMBAR SPINE 2 OR 3 VIEWS, 06/27/2023, 10:42. [facility], MR, L-SPINE WITHOUT CONTRAST, 01/03/2017, 11:09. FINDINGS: Image quality: Excellent. Alignment and Curvature: Since the previous MRI, patient has undergone posterior lateral av and pedicle screw fixation and interbody spacer placement at L5-S1. There also appears to have been partial right facetectomy and right hemilaminotomy at L5-S1. There is mild levocurvature centered at L3. There is trace retrolisthesis of L2 on L3 and L3 on L4. Bone Marrow: Marrow is of normal overall signal. No acute vertebral body compression fractures. Spinal Cord: Conus medullaris terminates at the L1-L2 level. Visualized cord demonstrates normal signal and size. Paraspinous Soft Tissues: No paravertebral masses. T12-L1: Mild facet hypertrophy. No canal stenosis or foraminal stenosis. L1-L2: Mild disc bulge. No canal stenosis or foraminal stenosis. L2-L3: Progression of disc height loss, moderate, with trace retrolisthesis of L2 on L3. Mild disc bulge. Facet and ligament hypertrophy. No significant canal stenosis or foraminal stenosis. L3-L4: Progression of disc height loss, moderate. Trace retrolisthesis L3 on L4. No significant central canal stenosis. Mild right lateral recess stenosis. Mild bilateral foraminal narrowing. L4-L5: Severe chronic disc height loss. Mild posterior disc post osteophyte. Mild facet hypertrophy. Borderline canal stenosis. [id number]-[id number] right foraminal narrowing and mild left foraminal narrowing. L5-S1: No canal stenosis. Left facet hypertrophy. Head [id number] bilateral foraminal narrowing. IMPRESSION: 1. Underlying multilevel facet arthropathy. 2. Interval posterior lateral fusion and probable decompressive surgery at L5-S1. 3. Progression of multilevel disc height loss. 4. At L4-L5, there is borderline canal stenosis. At L3-L4 there is mild right lateral recess stenosis. 5. Multilevel relatively mild foraminal narrowing. Dictated by: Hudson Wadsworth M.D. on 07/02/2023 at 15:08 Approved by: Hudson Wadsworth M.D. on 07/02/2023 at 15:18
== END ==
PROVIDERS: PCP Family Medicine; Referring Provider Physical Medicine & Rehabilitation; Visit Provider Physical Medicine & Rehabilitation
DX: M48.062 Spinal stenosis, lumbar region with neurogenic claudication (principal); M47.816 Spondylosis without myelopathy or radiculopathy, lumbar region; M47.817 Spondylosis without myelopathy or radiculopathy, lumbosacral region; M48.07 Spinal stenosis, lumbosacral region; Z98.1 Arthrodesis status
CPT/HCPCS: 72148

== ENCOUNTER → 2023-07-19 16:01 | Outpatient (CLI) | payer MEDICARE, SELFPAY ==
[2022-07-27 18:06] VITALS: BMI 26.2
--- NOTE | 2023-07-19 | DI.MRI.S_ITS ---
PROCEDURE: MR CERVICAL SPINE WO CON INDICATIONS: STRAIN OF MUSCLE,FASCIA AND TENDON OF NECK TECHNIQUE: Noncontrast sagittal T1 spin echo and T2 fast spin echo, sagittal STIR, foraminal oblique sagittal T2 fast spin echo, and axial gradient echo or T2 fast spin echo through the cervical spine. COMPARISON: [facility], CR, XR CERVICAL SPINE 2 OR 3 VIEWS, 05/05/2020, 9:11. FINDINGS: Image quality: Excellent. Alignment and Curvature: There is trace retrolisthesis of C2 on C3, C4 on C5, trace anterolisthesis of C5 on C6, C6 on C7. Bone Marrow: Marrow demonstrates normal overall signal. Mild reactive endplate changes are present C2-3 and to a lesser degree C5-6. Spinal Cord: Visualized spinal cord has normal size and signal. No cerebellar tonsillar herniation. Paraspinous Soft Tissues: No paravertebral masses. Prevertebral soft tissues are normal in thickness. Discs: Multilevel moderate to severe disc desiccation most severe at C4-5, C5-6. C2-C3: Mild disc bulge with moderate spinal stenosis. Moderate bilateral foraminal narrowing with uncovertebral hypertrophy. C3-C4: Mild disc bulge with mild spinal stenosis. Mild left and [id number]-[id number] right foraminal narrowing with uncovertebral hypertrophy. C4-C5: Mild disc bulge with moderate to severe spinal stenosis. Moderate bilateral foraminal narrowing, right greater than left with uncovertebral hypertrophy. C5-C6: Mild disc bulge without spinal stenosis. Moderate bilateral foraminal narrowing with uncovertebral hypertrophy. C6-C7: Minimal disc bulge with minimal to mild spinal stenosis. Moderate left foraminal narrowing with uncovertebral hypertrophy. C7-T1: No disc bulge or spinal stenosis. Mild left foraminal narrowing. IMPRESSION: Multilevel disc bulges. Multilevel spinal stenosis most severe at C4-5 predominantly secondary to disc bulge. Multilevel foraminal narrowing most prominent at C2-3, C4-5 and C5-6 secondary to uncovertebral arthropathy. Dictated by: Hannah Gage M.D. on 07/20/2023 at 13:44 Approved by: Hannah Gage M.D. on 07/20/2023 at 13:56
== END ==
PROVIDERS: PCP Family Medicine; Referring Provider Physical Medicine & Rehabilitation; Visit Provider Physical Medicine & Rehabilitation
DX: S16.1XXA Strain of muscle, fascia and tendon at neck level, initial encounter (principal); M48.02 Spinal stenosis, cervical region; M47.812 Spondylosis without myelopathy or radiculopathy, cervical region; M50.31 Other cervical disc degeneration, high cervical region; X58.XXXA Exposure to other specified factors, initial encounter
CPT/HCPCS: 72141

== ENCOUNTER → 2023-11-27 07:00 | Outpatient (CLI) | payer MEDICARE, SELFPAY ==
[2022-07-27 18:06] VITALS: BMI 26.2
[2023-11-27 08:01] LABS: Hematocrit 41.5 % (41-53); Hemoglobin 14.2 g/dL (13.5-17.5); Mean Corpuscular HGB Conc 34.2 % (30-36); Mean Corpuscular Hemoglobin 28.2 PG (26-34); Mean Corpuscular Volume 82.6 fL (80-100); Platelet Count 148 X10^3/uL (150-400); Red Blood Cell Count 5.02 X10^6/uL (4.5-5.9); Red Cell Distribution Width 13.7 % (11.6-14.8); White Blood Cell Count 4.9 X10^3/uL (4.5-11.0)
[2023-11-27 08:22] LABS: Blood Urea Nitrogen 16 mg/dL (9-20); Carbon Dioxide 30 mmol/L (22-32); Chloride 106 mmol/L (98-107); Cholesterol 164 mg/dL (140-199); Estimated Glomerular Filt Rate > 60 mL/min (>60); Glucose 97 mg/dL (80-110); HDL Cholesterol 45 mg/dL (40-60); HEMOLYSIS < 15 (0-50); LDL Cholesterol Calculated 106 mg/dL (<100); Potassium 4.3 mmol/L (3.4-5.1); Sodium 139 mmol/L (137-145); Triglycerides 64 mg/dL (35-150)
== END ==
PROVIDERS: PCP Family Medicine; Referring Provider Internal Medicine Cardiovascular Disease; Visit Provider Internal Medicine Cardiovascular Disease
DX: E78.5 Hyperlipidemia, unspecified (principal); I10 Essential (primary) hypertension
CPT/HCPCS: 36415; 80048; 80061; 85027

== ENCOUNTER → 2023-12-13 06:45 | Outpatient (CLI) | payer MEDICARE, SELFPAY ==
[2022-07-27 18:06] VITALS: BMI 26.2
--- NOTE | 2023-12-13 06:46 | DI.ECHO.S_ITS ---
[facility] : : [id number] : [place] : : [id number] : : Phone: [phone] Echocardiogram Report + + :Name: SWATHI MACKAY Study Date: 12/13/2023 Height: 72 in : :Hospital ReadingLocation: Weight: 188 lb : : Gender: Male BSA: 2.1 m2 : :: 1945 Age: 78 yrs BP: 137/74 mmHg: :Reason For Study: LOWER EXTREMITY SWELLING : :Ordering Physician: KIRSTIN, : :DEMETRIUS Performed By: Alex Gilbert : :Referring: DEMETRIUS FULTON : + + Interpretation Summary Limited Echo: 1) Normal left ventricular thickness, size, wall motion, and systolic function (EF 60-65%). 2) Grosly, normal right ventricular size and function. 3) Compared to the Echo done 11/10/2022, no significant change. Procedure: A two-dimensional transthoracic echocardiogram with color flow and Doppler was performed in limited views only. The study quality was technically adequate. Comparison is made with the echocardiogram of 11/10/2022. The patient was in sinus rhythm with heart rates between 49-69 bpm during the exam. Left Ventricle: The left ventricle is normal in size and wall thickness. The ejection fraction is estimated to be 60-65%. Left ventricular systolic function appears normal without focal wall motion abnormalities. Right Ventricle: The right ventricle grossly appears normal in size with probable normal systolic function. Mitral Valve: The mitral valve is normal. There is trace mitral regurgitation. Aortic Valve: The aortic valve is trileaflet. There is mild aortic regurgitation. Tricuspid Valve: The tricuspid valve is normal. There is mild tricuspid regurgitation. The right ventricular systolic pressure is estimated to be at least 31.5 mmHg based on an estimated right atrial pressure of 3 mm Hg. Pulmonic Valve: The pulmonic valve is not well visualized. There is no pulmonic valvular stenosis. There is trace pulmonic regurgitation. Great Vessels: The aortic root is normal size. The dimensions of the ascending aorta are normal. The IVC is of normal diameter and collapses greater than 50% with a sniff. This suggests a low right atrial pressure of 3 mm Hg. Pericardium/ Pleura There is no pericardial effusion. There is no pleural effusion. MMode/2D Measurements & Calculations LVIDd: 5.3 cm LVOT diam: 2.4 cm LVIDs: 3.4 cm Ao root diam: 3.4 cm FS: 35.5 % asc Aorta Diam: 3.7 cm IVSd: 1.0 cm LVPWd: 0.88 cm LV rushing. diameter/BSA (cm/m^2): 2.5 LV sys. diameter/BSA (cm/m^2): 1.6 IVC diam: 1.5 cm Doppler Measurements & Calculations TR max tien: 266.8 cm/sec TR max P.5 mmHg PA V2 max: 76.6 cm/sec PA V2 mean: 58.7 cm/sec PA mean P.4 mmHg PA pr(Accel): 37.9 mmHg Reading Physician:12:45 PM
== END ==
LOC: ECHO 06:45
PROVIDERS: PCP Family Medicine; Referring Provider Family Medicine; Visit Provider Family Medicine
DX: I08.2 Rheumatic disorders of both aortic and tricuspid valves (principal); M79.89 Other specified soft tissue disorders
CPT/HCPCS: 93307

== ENCOUNTER → 2024-09-16 15:42 | Outpatient (CLI) | payer MEDICARE, SELFPAY ==
[2022-07-27 18:06] VITALS: BMI 26.2
--- NOTE | 2024-09-16 15:44 | DI.RAD.S_ITS ---
PROCEDURE: XR TOE RT MIN 2V INDICATIONS: Right great toe pain TECHNIQUE: 3 views of the 1st toe(s) acquired. COMPARISON: None. FINDINGS: Bones: No fractures or dislocations. Valgus angulation about the 1st metatarsophalangeal joint measures 18?. Erosive changes adjacent to the 1st MTP joint suggests sequelae of inflammatory arthritis, such as gout. Small collections of gas noted within the nailbed of the 1st digit. Soft tissues: No suspicious soft tissue densities. IMPRESSION: No evidence of acute osseous abnormality. Small collections of gas are noted within the 1st nailbed, possibly representing infection. Mild hallux valgus and erosive 1st MTP periarticular changes are suggestive of possible gout. Dictated by: Shakir Rosales M.D. on 09/17/2024 at 2:20 Approved by: Shakir Rosales M.D. on 09/17/2024 at 2:22
== END ==
PROVIDERS: PCP Family Medicine; Referring Provider Nurse Practitioner Family; Visit Provider Nurse Practitioner Family
DX: S97.111A Crushing injury of right great toe, initial encounter (principal); M20.11 Hallux valgus (acquired), right foot; X58.XXXA Exposure to other specified factors, initial encounter
CPT/HCPCS: 73660

== ENCOUNTER → 2024-12-15 07:40 | Outpatient (CLI) | payer MEDICARE, SELFPAY ==
[2022-07-27 18:06] VITALS: BMI 26.2
[2024-12-15 08:22] LABS: Hematocrit 44.0 % (41-53); Hemoglobin 15.1 g/dL (13.5-17.5); Mean Corpuscular HGB Conc 34.4 % (30-36); Mean Corpuscular Hemoglobin 28.7 PG (26-34); Mean Corpuscular Volume 83.6 fL (80-100); Platelet Count 139 X10^3/uL (150-400)
[2024-12-15 08:27] LABS: Blood Urea Nitrogen 23 mg/dL (9-20); Calcium 9.1 mg/dL (8.4-10.2); Carbon Dioxide 28 mmol/L (22-32); Chloride 107 mmol/L (98-107); Cholesterol 133 mg/dL (140-199); Estimated Glomerular Filt Rate > 60 mL/min (>60); Glucose 109 mg/dL (70-99); HDL Cholesterol 43 mg/dL (40-60); HEMOLYSIS < 15 (0-50); Potassium 4.4 mmol/L (3.4-5.1); Sodium 140 mmol/L (137-145); Triglycerides 52 mg/dL (35-150)
== END ==
PROVIDERS: PCP Family Medicine; Referring Provider Internal Medicine Cardiovascular Disease; Visit Provider Internal Medicine Cardiovascular Disease
DX: E78.5 Hyperlipidemia, unspecified (principal); I10 Essential (primary) hypertension
CPT/HCPCS: 36415; 80048; 80061; 85027